=== PATIENT | female | born 1950 | race African-American/Black ===

== ENCOUNTER 2019-03-28 11:48 | Inpatient (IN) | payer MEDICARE, OTHER ==
[~2019-03-28] VITALS: Ht 167.6 cm; Wt 72.6 kg
[2019-03-28 11:50] VITALS: BP_SYST 164; BP_SYST 180; BP_DIAS 65; BP_DIAS 74
--- NOTE | 2019-03-28 11:50 | NUR ---
ED Nurse Note: brought in by RA Spence from [facility] due to near syncopal episode. a/ox3. no trauma. pt denies head injury. VSS. skin dry and loose. no fever.
[2019-03-28] MEDS ORDERED: ATORVASTATIN CA20 MG ORAL (12:11)
[2019-03-28] MEDS ORDERED: ACIDOPHILUS LACT1 GM MC (12:11)
[2019-03-28] MEDS ORDERED: LAMICTAL25 MG ORAL (12:11)
[2019-03-28] MEDS ORDERED: DONEPEZIL HCL5 M2 ORAL (12:11)
[2019-03-28] MEDS ORDERED: DULCOLAX10 MG RC (12:11)
[2019-03-28] MEDS ORDERED: RISPERDAL1 MG PO (12:11)
[2019-03-28] MEDS ORDERED: CLOPIDOGREL75 MG ORAL (12:11)
[2019-03-28] MEDS ORDERED: COLACE100 MG ORAL (12:11)
[2019-03-28] MEDS ORDERED: LEXAPRO20 MG ORAL (12:11)
[2019-03-28] MEDS ORDERED: FUROSEMIDE20 M1 ORAL (12:11)
[2019-03-28] MEDS ORDERED: MIRTAZAPINE15 MG ORAL (12:11)
[2019-03-28] MEDS ORDERED: MILK OF MA400 MG/51 ORAL (12:11)
[2019-03-28] MEDS ORDERED: LATANOPROST 0.7.5 ML BOTH EYES (12:11)
[2019-03-28] MEDS ORDERED: ZINC SULFATE220 M1 ORAL (12:11)
[2019-03-28] MEDS ORDERED: ACETAMINOPHEN500 MG ORAL (12:11)
[2019-03-28] MEDS ORDERED: ASPIRIN81 MG ORAL (12:11)
[2019-03-28] MEDS ORDERED: METOPROLOL SUCC25 MG ORAL (12:11)
[2019-03-28] MEDS ORDERED: LORATADINE10 M1 PO (12:11)
[2019-03-28] MEDS ORDERED: VITAMIN D400 INTLU ORAL (12:11)
--- NOTE | 2019-03-28 12:23 | NUR ---
ED Nurse Note: all labs, cultures, and urine sent down to the lab.
[2019-03-28 12:41] LABS: BASOPHILS % (AUTO) 0.4 % (0.0-2.0); EOSINOPHILS % (AUTO) 0.9 % (0.0-3.0); HEMATOCRIT 29.5 % (37.0-47.0); HEMOGLOBIN 9.4 G/DL (12.0-16.0); LYMPHOCYTES % (AUTO) 23.6 % (20.0-45.0); MEAN CORPUSCULAR VOLUME 104 FL (80-99); MONOCYTES % (AUTO) 8.5 % (1.0-10.0); NEUTROPHILS % (AUTO) 66.5 % (45.0-75.0); PLATELET COUNT 178 K/UL (150-450); RED BLOOD COUNT 2.84 M/UL (4.20-5.40); WHITE BLOOD COUNT 7.2 K/UL (4.8-10.8)
[2019-03-28 12:42] LABS: APPEARANCE,URINE CLEAR; BILIRUBIN, URINE NEGATIVE (NEGATIVE); GLUCOSE, URINE (UA) NEGATIVE (NEGATIVE); KETONES,URINE NEGATIVE (NEGATIVE); LEUKOCYTE ESTERASE ,URINE 3+ (NEGATIVE); NITRITE,URINE POSITIVE (NEGATIVE); PH,URINE 6 (4.5-8.0); PROTEIN,URINE NEGATIVE (NEGATIVE); UROBILINOGEN,URINE NORMAL MG/DL (0.0-1.0)
[2019-03-28 12:52] LABS: COLOR,URINE YELLOW
[2019-03-28] MEDS ORDERED: cefTRIAXone 1 GM in NS 55 ML IVPB ONE (13:00)
--- NOTE | 2019-03-28 13:00 | Emergency Room Report ---
History of Present Illness General Chief Complaint: Generalized Weakness Source: Patient Present Illness HPI 68-year-old male presents to ED for evaluation. Brought in by EMS from [facility] facility for near syncopal episode. Upon arrival patient feels weak. EMS states that blood pressure was low. Systolic in the 70s. Upon arrival patient's BP improved. EMS was unable to establish IV access. Patient states she feels weak. Patient denies fevers or chills. Denies chest pain or shortness of breath. Denies any dizziness. No other aggravating relieving factors. Denies any other associated symptoms Allergies: Coded Allergies: No Known Allergies (Unverified , 03/28/19) Patient History Past Medical History: DM, HTN, CHF, AFib, dementia, psych hx Past Surgical History: pacemaker Pertinent Family History: none Social History: Denies: smoking, alcohol use, drug use Last Menstrual Period: N/A Now: No Immunizations: UTD Reviewed Nursing Documentation: PMH: Agreed; PSxH: Agreed Nursing Documentation-PMH Hx Cardiac Problems: Yes - AFIB, HEART FAILURE, HYPERLIPIDEMIA Hx Hypertension: Yes Hx Pacemaker: Yes Hx Diabetes: Yes - AND GLAUCOMA History Of Psychiatric Problem: Yes - DEMENTIA, SCHIZOPHRENIA, MAJOR DEPRESSIVE DISORDER, ALZHEIMERS Review of Systems All Other Systems: negative except mentioned in HPI Physical Exam Vital Signs Date Time Temp Pulse Resp B/P (MAP) Pulse Ox O2 Delivery O2 Flow Rate FiO2 03/28/19 11:39 97.9 83 19 145/70 (95) 100 Room Air Sp02 EP Interpretation: reviewed, normal General Appearance: no apparent distress, alert, GCS 15, non-toxic Head: normocephalic, atraumatic Eyes: bilateral eye normal inspection, bilateral eye PERRL ENT: hearing grossly normal, normal pharynx, no angioedema, normal voice Neck: full range of motion, supple/symm/no masses Respiratory: chest non-tender, lungs clear, normal breath sounds, speaking full sentences Cardiovascular #1: regular rate, rhythm, no edema Cardiovascular #2: 2+ carotid (R), 2+ carotid (L), 2+ radial (R), 2+ radial (L) , 2+ dorsalis pedis (R), 2+ dorsalis pedis (L) Gastrointestinal: normal bowel sounds, non tender, soft, non-distended, no guarding, no rebound Rectal: deferred Genitourinary: normal inspection, no CVA tenderness Musculoskeletal: back normal, gait/station normal, normal range of motion, non- tender Neurologic: alert, oriented x3, responsive, motor strength/tone normal, sensory intact, speech normal Psychiatric: judgement/insight normal, memory normal, mood/affect normal, no suicidal/homicidal ideation Reflexes: 3+ bicep (R), 3+ bicep (L), 3+ tricep (R), 3+ tricep (L), 3+ knee (R) , 3+ knee (L) Skin: normal color, no rash, warm/dry, well hydrated Lymphatic: no adenopathy Medical Decision Making Diagnostic Impression: Primary Impression: Episode of generalized weakness Additional Impressions: UTI (urinary tract infection) Qualified Codes: N39.0 - Urinary tract infection, site not specified Syncope Qualified Codes: R55 - Syncope and collapse ER Course Hospital Course 63 yo F presents to ED s/p syncopal episode. weakness. Differential diagnoses include: WI/unstable angina, arrythmia, dehydration Clinical course Patient placed on stretcher. on conveyor monitor. After initial history and physical I ordered labs, EKG, chest x-ray, IVFs Patient is difficult IV access. I placed peripheral EJ line labs reviewed- noted leukocytosis, hemoglobin/hematocrit ok, electrolytes okay, troponins negative, UA + bacteria EKG- NSR, no acute ischemic changes interpreted by me Chest x-ray- pacemaker noted. Patient initially hypotensive by EMS but BP normal in ED. She maintains normal BP in ED antibiotics given. IVFS given. Case discussed with Dr. Boston and he agreed to accept the patient to his service for further care and support I. I feel this is a highly complex case requiring extensive working including EKG/Rhythm strip, Xray/CT/US, Blood/urine lab work, repeat exams while in ED, and administration of strong opiates/narcotics for pain control, admission to hospital or close patient follow up. Diagnosis - syncope, UTI, episode of generalized weakness admitted to telemetry in serious condition Labs Test 03/28/19 12:10 03/28/19 12:20 White Blood Count 7.2 K/UL (4.8-10.8) Red Blood Count 2.84 M/UL (4.20-5.40) Hemoglobin 9.4 G/DL (12.0-16.0) Hematocrit 29.5 % (37.0-47.0) Mean Corpuscular Volume 104 FL (80-99) Mean Corpuscular Hemoglobin 33.2 PG (27.0-31.0) Mean Corpuscular Hemoglobin Concent 32.0 G/DL (32.0-36.0) Red Cell Distribution Width 15.0 % (11.6-14.8) Platelet Count 178 K/UL (150-450) Mean Platelet Volume 6.7 FL (6.5-10.1) Neutrophils (%) (Auto) 66.5 % (45.0-75.0) Lymphocytes (%) (Auto) 23.6 % (20.0-45.0) Monocytes (%) (Auto) 8.5 % (1.0-10.0) Eosinophils (%) (Auto) 0.9 % (0.0-3.0) Basophils (%) (Auto) 0.4 % (0.0-2.0) Urine Color Yellow Urine Appearance Clear Urine pH 6 (4.5-8.0) Urine Specific V[place] 1.010 (1.005-1.035) Urine Protein Negative (NEGATIVE) Urine Glucose (UA) Negative (NEGATIVE) Urine Ketones Negative (NEGATIVE) Urine Blood Negative (NEGATIVE) Urine Nitrite Positive (NEGATIVE) Urine Bilirubin Negative (NEGATIVE) Urine Urobilinogen Normal MG/DL (0.0-1.0) Urine Leukocyte Esterase 3+ (NEGATIVE) Urine RBC 0-2 /HPF (0 - 2) Urine WBC 20-30 /HPF (0 - 2) Urine Squamous Epithelial Cells Few /LPF (NONE/OCC) Urine Bacteria Moderate /HPF (NONE) EKG Diagnostic Results Rate: normal Rhythm: NSR ST Segments: no acute changes ASA given to the pt in ED: No Rhythm Strip Diag. Results EP Interpretation: yes Rhythm: NSR, no PVC's, no ectopy Chest X-Ray Diagnostic Results Chest X-Ray Diagnostic Results : Chest X-Ray Ordered: Yes # of Views/Limited/Complete: 1 View Indication: Other EP Interpretation: Yes Interpretation: no consolidation, no effusion, no pneumothorax, no acute cardiopulmonary disease, other - pacemaker Impression: No acute disease Electronically Signed by: Electronically signed by Galdino Groves MD Last Vital Signs Date Time Temp Pulse Resp B/P (MAP) Pulse Ox O2 Delivery O2 Flow Rate FiO2 03/28/19 11:50 83 19 Room Air 03/28/19 11:50 97.9 164/65 100 Status: improved Disposition: ADMITTED INPATIENT Condition: Serious Galdino Groves MD Mar 28, 2019 13:00
[2019-03-28 13:25] LABS: ALANINE AMINOTRANSFERASE 39 U/L (12-78); ALBUMIN 3.1 G/DL (3.4-5.0); ALBUMIN/GLOBULIN RATIO 0.9 (1.0-2.7); ALKALINE PHOSPHATASE 79 U/L (46-116); ANION GAP 9 mmol/L (5-15); ASPARTATE AMINO TRANSFERASE 51 U/L (15-37); BILIRUBIN,TOTAL 0.3 MG/DL (0.2-1.0); BLOOD UREA NITROGEN 11 mg/dL (7-18); CALCIUM 9.1 MG/DL (8.5-10.1); CARBON DIOXIDE 22 MMOL/L (21-32); CHLORIDE 109 MMOL/L (98-107); CKMB < 0.5 NG/ML (0.0-3.6); CREATINE KINASE 28 U/L (26-308); POTASSIUM 4.6 MMOL/L (3.5-5.1); SODIUM 140 MMOL/L (136-145)
--- NOTE | 2019-03-28 13:45 | NUR ---
ED Nurse Note: spoke with KATRINA Arevalo from 2E, receiving RN is not able to received report at this time. Will call back.
--- NOTE | 2019-03-28 13:55 | NUR ---
ED Nurse Note: telephone report given to KATRINA Bhardwaj. Pt remains stable. Will transfer the pt up.
[2019-03-28 13:57] VITALS: BP 154/62
--- NOTE | 2019-03-28 14:17 | NUR ---
TRANSFER TO FLOOR: Patient transferred to #[id number] as ordered via gurney with gaming manager . Report given to KATRINA fay. Belongings given to pt. no s/s of distress.
--- NOTE | 2019-03-28 14:20 | NUR ---
NURSE NOTES: Pt transferred safely to floor from ED. potline monitor applied, pt is SR. Patient belongings verified. Report received from KATRINA Mattson. Pt shows no signs of distress. A+Ox2, confused about when and where she is. Pt denies pain/SOB. IV site is patent, intact, and saline locked. Bed is at lowest position, brakes engaged, siderails x2, bed alarm on, and call light within reach. Pt is in stable condition at this time; will continue to monitor.
--- NOTE | 2019-03-28 14:44 | Diagnostic Imaging Report ---
EXAM: XR Chest, 1 View CLINICAL HISTORY: SYNCOPE TECHNIQUE: Frontal view of the chest. COMPARISON: No relevant prior studies available. FINDINGS: Lungs: Pulmonary hyperexpansion. No clear consolidation. Pleural space: Unremarkable. No pneumothorax. Heart: Dual-lead pacer device in a left subclavian approach. Bones/joints: Unremarkable. IMPRESSION: Pulmonary hyperexpansion. No clear consolidation. Pacer device.
--- NOTE | 2019-03-28 15:01 | NUR ---
NURSE NOTES: Left message with Dr. Darling regarding admission orders; awaiting response.
[2019-03-28 16:00] VITALS: BP 160/87
[2019-03-28] MEDS ORDERED: LORazepam 1mg tab ORAL PRN (16:00)
[2019-03-28] MEDS: LORazepam Inj 2mg/ml 1ml IV PRN ×2 (16:15→22:41)
--- NOTE | 2019-03-28 17:08 | NUR ---
NURSE NOTES: Admission orders in. Let Dr. Darling know that patient is wandering and almost falling over. He ordered ativan. Ativan did not work. He said we could use bilat soft wrist restraints. Order noted and carried out. Pt placed in restraints. Pt yelling and screaming, but she is in bed safely.
[2019-03-28] MEDS: 1/2NS w/KCl 20mEq 1000ml 1,000 ML IV SCH ×2 (17:22→20:14)
--- NOTE | 2019-03-28 19:24 | NUR ---
NURSE NOTES: Report given to KATRINA Parkinson. Plan of care endorsed; plan of care endorsed.
--- NOTE | 2019-03-28 19:30 | NUR ---
NURSE NOTES: Received pt from KATRINA Bhardwaj. Pt awake and screaming out different family names. Bed in lowest position. Restraints on. Call light within reach. Will continue to monitor.
[2019-03-28 20:01] VITALS: BP 139/70
[2019-03-28] MEDS: Heparin 5000 units/ml inj SUBQ SCH (20:17)
[2019-03-29 04:00] VITALS: BP 150/91
[2019-03-29] MEDS: LORazepam Inj 2mg/ml 1ml IV PRN ×2 (06:38→13:58)
--- NOTE | 2019-03-29 07:37 | NUR ---
HAND-OFF: Report given to KATRINA Arce. Pt stable.
[2019-03-29 08:00] VITALS: BP 156/68
--- NOTE | 2019-03-29 08:21 | NUR ---
NURSE NOTES: Received report from KATRINA Parkinson. Patient in bed resting, no active s/s cardiac, respiratory distress noticed at this time. Patient on room air, SR with HR 86, AOx1, confused, trying to get out of bed. Patient on bilateral soft wrist restraints, cap refill <3 sec, able to move fingers. IV on right EJ, 20G, asymptomatic, patent, intact. Bed in lowest position, side rails upx3, call light within reach, bed alarm on. Will continue to monitor.
[2019-03-29] MEDS: Aspirin Baby 81mg ORAL SCH (10:17)
[2019-03-29] MEDS: Heparin 5000 units/ml inj SUBQ SCH ×2 (10:18→20:16)
[2019-03-29 12:00] VITALS: BP_SYST 160; BP_SYST 186; BP_DIAS 89; BP_DIAS 94
--- NOTE | 2019-03-29 12:41 | NUR ---
NURSE NOTES: Paged Dr. Butler regarding dosage for Rocephin. Per pharmacist, only 1 g or 2g Rocephin available. Awaiting for callback. Will continue to monitor.
--- NOTE | 2019-03-29 13:20 | NUR ---
NURSE NOTES: Per Dr. Butler, change Rocephin 500mg to 1g. Order noted, entered, carried out. Called pharmacist to clarify. Will continue to monitor.
[2019-03-29] MEDS: cefTRIAXone 1gm/D5W 55ml IVPB SCH ×2 (14:07)
--- NOTE | 2019-03-29 14:54 | NUR ---
NURSE NOTES: Paged Dr. Butler regarding high BP 180s, awaiting for callback. Will continue to monitor.
[2019-03-29 16:00] VITALS: BP 160/94
--- NOTE | 2019-03-29 16:45 | History and Physical Report ---
DATE OF ADMISSION: 03/28/2019 CHIEF COMPLAINT: Altered level of consciousness. HISTORY OF PRESENT ILLNESS: This is a 63-year-old female from [facility]. The patient's primary physician, Dr. Didi Gonzales, asked me to attend this patient while she is at [facility]. The patient is confused and unable to give any further information. PAST MEDICAL HISTORY: 1. Type 2 diabetes mellitus. 2. Hypertensive cardiovascular disease. 3. Congestive heart failure. 4. Atrial fibrillation. 5. Dementia. 6. Schizophrenia. 7. Glaucoma. MEDICATIONS: Current medications multiple and include Tylenol p.r.n., baby aspirin, atorvastatin, bisacodyl, Plavix, indication for which is not clear, sodium docusate, Aricept, Lexapro, Lasix, lactobacillus, Lamictal, latanoprost eye drops, loratadine, milk of magnesia, Toprol XL, Remeron, Risperdal, vitamin D3, and zinc sulfate. ALLERGIES: No known drug allergies. FAMILY HISTORY: Unable to obtain due to mental status. SOCIAL HISTORY: Unable to obtain due to mental status. REVIEW OF SYSTEMS: Unable to obtain due to mental status. PHYSICAL EXAMINATION: GENERAL: This is an elderly female, who is in no acute distress. VITAL SIGNS: Blood pressure 156/68, pulse 89, heart rate 91 and regular, respirations 18, and temperature 96.8. HEENT: The head is normocephalic and atraumatic. Pupils are equal, round, and reactive to light and accommodation consensually. NECK: Supple. Trachea midline. There is no lymphadenopathy or thyromegaly. LUNGS: Clear to auscultation and percussion. HEART: Regular rate and rhythm without rubs, murmurs, or gallops. ABDOMEN: Soft and nontender. Bowel sounds were active. EXTREMITIES: No clubbing, cyanosis, or edema. NEUROLOGIC: She is confused. There were no gross focal findings. She is very agitated. LABORATORY AND ANCILLARY DATA: Hematocrit 29.5, otherwise CBC within normal limits. Chemistry, glucose 112. Albumin 3.1. Otherwise, CMP within normal limits. Urinalysis, positive nitrites, 20 to 30 rbc's, moderate amount of bacteria. Chest x-ray, pulmonary expansion. EKG normal sinus rhythm. ASSESSMENT: 1. Altered level of consciousness, most likely related to her urinary tract infection. 2. Type 2 diabetes mellitus. 3. Hypertensive cardiovascular disease. 4. Congestive heart failure. 5. Atrial fibrillation. 6. Dementia. 7. Schizophrenia. 8. Glaucoma. PLAN: 1. Continue telemetry. 2. IV antibiotics. 3. the patient's polypharmacy. 4. Psychiatry consult. 5. Cardiology consult. Rg Darling M.D. DR: GISSEL JOB#: [id number] CC:
[2019-03-29] MEDS ORDERED: LORATADINE10 M2 PO (18:57)
[2019-03-29] MEDS ORDERED: VENTOLIN HFA18 GM INH (18:57)
[2019-03-29] MEDS ORDERED: MIRTAZAPINE7.5 MG ORAL (18:57)
[2019-03-29] MEDS ORDERED: ASPIR 8181 MG ORAL (18:57)
[2019-03-29] MEDS ORDERED: ATORVASTATIN CA10 MG ORAL (18:57)
[2019-03-29] MEDS ORDERED: FLEET ENEMA133 ML RECTAL (18:57)
[2019-03-29] MEDS ORDERED: DONEPEZIL HCL5 MG ORAL (18:57)
[2019-03-29] MEDS ORDERED: ATIVAN2 MG ORAL (18:57)
[2019-03-29] MEDS ORDERED: ACETAMINOPHEN325 M1 ORAL (18:57)
[2019-03-29] MEDS ORDERED: POTASSIUM CHLO20 ME1 ORAL (18:57)
--- NOTE | 2019-03-29 19:11 | NUR ---
Received report from KARTINA DOMINIQUE. Patient resting in bed, no signs of cardiac or respiratory distress. Patient is only Alert and oriented x1 to self with confusion, Sinus rhythm on monitor, observed patient on Room air, with bilateral soft wrist restraints ordered, capillary refill checked, <3 seconds. Patient on bilateral soft wrist restraints, cap refill <3 sec, no impairment of circulation. IV intact on R EJ 20g, patent. Bed in lowest position, call light within reach, bed in lowest position, bed alarm on for safety.
--- NOTE | 2019-03-29 19:53 | NUR ---
HAND-OFF: Report given to KATRINA Mason.
--- NOTE | 2019-03-29 20:21 | NUR ---
Dr Darlnig was paged regarding the patient's elevated Blood pressure. ordered Scheduled medication Labetalol BID to start this evening see orders for details
[2019-03-29 20:23] VITALS: BP 212/109
[2019-03-29 22:35] VITALS: BP 132/73
--- NOTE | 2019-03-29 22:36 | NUR ---
Blood pressure rechecked at 132/73 HR 96. Medication effective.
[2019-03-30] VITALS (7 sets, daily range): BP systolic 133–170; BP diastolic 57–71
[2019-03-30] MEDS: 1/2NS w/KCl 20mEq 1000ml 1,000 ML IV SCH ×2 (01:10→15:56)
--- NOTE | 2019-03-30 07:35 | NUR ---
Report given to Claude HERNDON. Patient is awake and alert, in bilateral soft wrist restraints. Vital signs stable at this time. Blood pressure more stable.
--- NOTE | 2019-03-30 07:36 | NUR ---
NURSE NOTES: Received report from KATRINA Mason. Patient in bed resting, no active s/s cardiac, respiratory distress noticed at this time. Denies pain at this time. Patient on room air, SR with HR 77, on bilateral soft restraint, cap refill <3 sec, able to move, AOx1, confuse, trying to get out of bed, open eyes spontaneously. IV on right EJ 20G, asymptomatic, patent, intact. Bed in lowest position, side rails upx3, call light within reach, bed alarm on. Will continue to monitor.
[2019-03-30] MEDS: cefTRIAXone 1gm/D5W 55ml IVPB SCH ×2 (09:46)
[2019-03-30] MEDS: Aspirin Baby 81mg ORAL SCH (09:46)
[2019-03-30] MEDS: Heparin 5000 units/ml inj SUBQ SCH ×2 (09:48→21:11)
--- NOTE | 2019-03-30 10:19 | General Progress Note ---
Assessment/Plan Assessment/Plan: UTI - IV Abx E. Coli, R/O ESBL Subjective Allergies: Coded Allergies: No Known Allergies (Unverified , 03/28/19) Subjective Confused, agitated Objective Last 24 Hour Vital Signs Date Time Temp Pulse Resp B/P (MAP) Pulse Ox O2 Delivery O2 Flow Rate FiO2 03/30/19 09:47 88 154/64 03/30/19 08:00 97.9 88 18 154/64 (94) 100 03/30/19 04:24 96.6 77 20 141/57 (85) 100 03/30/19 04:24 77 03/30/19 00:57 98.4 96 20 133/57 (82) 100 03/29/19 22:35 96 20 132/73 (92) 100 03/29/19 21:43 Room Air 03/29/19 20:23 98.4 100 20 212/109 (143) 100 03/29/19 20:17 100 212/109 03/29/19 20:00 106 03/29/19 16:00 100 03/29/19 16:00 98.0 99 20 160/94 (116) 100 03/29/19 12:00 98.0 103 20 186/89 (121) 100 03/29/19 12:00 88 Intake and Output 03/29/19 03/30/19 19:00 07:00 Intake Total 120 ml Balance 120 ml Intake Oral 120 ml # Voids 3 Laboratory Tests 03/30/19 06:40: Magnesium Level 1.3L Height (Feet): 5 Height (Inches): 6.00 Weight (Pounds): 160 Objective CV RR Lungs CTa Abd SNT. BS + E No CCE Neuro Confused gR Darling MD Mar 30, 2019 10:19
--- NOTE | 2019-03-30 10:33 | NUR ---
NURSE NOTES: Received blood culture result: one pair shown one bottle of gram cocci in cluster. Dr. Darling was nearby. Dr. Darling is aware. States to wait for 2nd pair and then contact Dr. Darling.
[2019-03-30] MEDS: LORazepam Inj 2mg/ml 1ml IV PRN (13:52)
--- NOTE | 2019-03-30 16:15 | Coder Physician Query ---
Clarification is required for compliance, coding accuracy, and to reflect severity of illness for this patient Dear Dr. Rg Butler Date: 03/30/2019 Piccolo Mechanic/CDS Name: Abril Heredia Clinical Documentation States: 63-year-old female... patient is confused and unable to give any further information...Altered level of consciousness, most likely related to her urinary tract infection...Dementia...Schizophrenia Labs: Na 140, K 4.6, Cl 109 (L), Glucose 112 (H), Mg 1.3 (L) Treatment: IV ceftriaxone Please indicate the nature and chronicity of the condition below: [] Encephalopathy due to UTI [x] Metabolic Encephalopathy [] Dementia with delirium [] Dementia with behavioral disturbance [] Other: [] Not Applicable Present on Admission: [] Yes [] No [] Clinically Undetermined Physician signature Date Please also document in your Progress Notes and/or Discharge Summary and indicate if the condition was present on admission. MTDD
--- NOTE | 2019-03-30 16:30 | NUR ---
NURSE NOTES: Dr. Lackey made aware patient confuse, screaming. Per Dr. Lackey, will order something. Order noted, entered, carried out. Will continue to monitor.
--- NOTE | 2019-03-30 17:05 | NUR ---
CASE MANAGEMENT:REVIEW 63 YR OLD FEMALE BIBA FROM [facility] CC; NEAR SYNCOPAL EPISODE. SBP 70 AT SCENE SI: SYNCOPE. UTI 97.8 83 19 145/70 100% ON RA H/H-9.4/29.5 IS:1L NS BOLUS IV ROCEPHIN BLOOD CX CHEST XRAY : TO TELEMETRY UNIT DCP: RETURN TO [facility]
--- NOTE | 2019-03-30 17:32 | Diagnostic Imaging Report ---
APPROVED REPORT CPT Code: 59377 Vascular Symptoms Syncope Comments: Hx of a line in the right neck Doppler Spectral Velocity Analysis RightLeft Technically limited study (right side) RIGHT SIDE: CCA - Imaging reveals irregular plaque in the common carotid artery. The Doppler spectral flow analysis indicates the degree of stenosis is mild (30-40%) in the common carotid artery. ICA/ECA- The internal carotid artery and the external carotid artery were not imaged, due to a line. VERTEBRAL/SUBCLAVIAN- The vertebral artery and subclavian artery are patent, without evidence of stenosis or steal. arteries. The Doppler spectral flow analysis indicates the degree of stenosis is mild (30-40%) in the common carotid artery, moderate to severe (70-80%) in the internal carotid artery, and mild (30-50%) in the external carotid artery. VERTEBRAL/SUBCLAVIAN- The vertebral artery and subclavian artery are patent, without evidence of stenosis or steal.
--- NOTE | 2019-03-30 20:06 | NUR ---
HAND-OFF: Report given to KATRINA Parkinson.
--- NOTE | 2019-03-30 20:07 | NUR ---
NURSE NOTES: Received pt from KATRINA Arce. Pt awake, alert, and yelling out multiple names in the hallway. Bed in lowest position. Call light within reach. Will continue to monitor.
--- NOTE | 2019-03-30 20:41 | NUR ---
Contacted Dr Lackey per patient very anxious and screaming in her room .Pt states she is stressed out and she needs something to calm her down. Dr Lackey ordered 1mg Ativan IV q4 prn for pt anxiety. see order for details.
[2019-03-30] MEDS ORDERED: LORazepam Inj 2mg/ml 1ml IV PRN (20:45)
[2019-03-31] VITALS: BP 143/56
[2019-03-31 03:56] VITALS: BP 134/65
--- NOTE | 2019-03-31 06:00 | Consultation ---
DATE OF CONSULTATION: 03/30/2019 HISTORY OF PRESENT ILLNESS: The patient is a 63-year-old female presents with multiple medical problems including type 2 diabetes, schizophrenia, hypertension, cardiovascular disease, congestive heart failure, AFib, glaucoma, who has been admitted to the hospital for medical stabilization. The patient came from [facility]. The patient is agitated, confused, and unable to provide any history. PAST PSYCHIATRIC HISTORY: Schizophrenia. PAST MEDICAL HISTORY: As above. ALLERGIES: No known drug allergies. SUBSTANCE ABUSE HISTORY: No known history of illicit drug use or alcohol. MENTAL STATUS EXAMINATION: The patient is alert, confused, and disoriented. Mood is agitated. Affect is constricted. Thought process is concrete. Thought content, no suicidal or homicidal ideations. ASSESSMENT: AXIS I: Schizophrenia. AXIS II: Deferred. AXIS III: As above. AXIS IV: Low. AXIS V: 20. PLAN: 1. The patient will be started on Lexapro. 2. We will start the patient on antipsychotics. 3. Ativan p.r.n. 4. We will continue to follow and readjust the medications. Jourdan Lackey M.D. DR: MCKENZIE JOB#: [id number] CC:
[2019-03-31] MEDS: 1/2NS w/KCl 20mEq 1000ml 1,000 ML IV SCH (06:32)
--- NOTE | 2019-03-31 07:38 | NUR ---
HAND-OFF: Report given to KATRINA Johnson. Pt asleep.
--- NOTE | 2019-03-31 07:39 | NUR ---
NURSE NOTES: Received report from KATRINA Parkinson. Patient is resting in bed, sleeping. No signs and symptoms of acute distress at this time. Kept clean, dry, and comfortable in bed. Safety precaution in place; side rails X2 up, call light within reach, bed in lowest position, brakes and alarm on at all times. Restraint on. IV running at RX dose. Will continue plan of care.
[2019-03-31 08:00] VITALS: BP 158/67
[2019-03-31] MEDS: cefTRIAXone 1gm/D5W 55ml IVPB SCH ×2 (08:57)
[2019-03-31] MEDS: Aspirin Baby 81mg ORAL SCH (08:58)
[2019-03-31] MEDS: Heparin 5000 units/ml inj SUBQ SCH (09:00)
--- NOTE | 2019-03-31 09:19 | General Progress Note ---
Assessment/Plan Assessment/Plan: UTI - IV Abx E. Coli, R/O ESBL. On IV Abx. Improving. DC to SNF. Subjective Allergies: Coded Allergies: No Known Allergies (Unverified , 03/28/19) Subjective Less confused and agitated Objective Last 24 Hour Vital Signs Date Time Temp Pulse Resp B/P (MAP) Pulse Ox O2 Delivery O2 Flow Rate FiO2 03/31/19 08:58 82 158/67 03/31/19 08:00 98.6 82 20 158/67 (97) 98 03/31/19 04:00 76 03/31/19 03:56 97.9 80 18 134/65 (88) 98 03/31/19 00:00 97.5 76 18 143/56 (85) 100 03/31/19 00:00 75 03/30/19 21:09 84 138/62 03/30/19 21:08 84 138/62 (87) 99 03/30/19 21:00 Room Air 03/30/19 20:00 86 03/30/19 20:00 98.7 86 16 152/65 (94) 100 03/30/19 16:00 97.7 72 16 170/71 (104) 100 03/30/19 16:00 79 03/30/19 12:00 82 03/30/19 12:00 97.6 76 18 138/66 (90) 99 03/30/19 09:47 88 154/64 Intake and Output 03/30/19 03/31/19 19:00 07:00 # Voids 5 2 # Bowel Movements 1 Height (Feet): 5 Height (Inches): 6.00 Weight (Pounds): 160 Objective CV RR Lungs CTa Abd SNT. BS + E No CCE Neuro Confused Rg Darling MD Mar 31, 2019 09:19
[2019-03-31] MEDS ORDERED: NORMODYNE100 MG ORAL (09:23)
[2019-03-31] MEDS ORDERED: LEXAPRO10 MG ORAL (09:23)
[2019-03-31] MEDS ORDERED: SEROQUEL25 MG ORAL (09:23)
--- NOTE | 2019-03-31 09:35 | NUR ---
DISCHARGE PLANNING DISCHARGE ORDER NOTED FAXED CLINICALS TO [facility] AWAIT ROOM ASSIGNMENT
--- NOTE | 2019-03-31 11:20 | NUR ---
NURSE NOTES: Paged Dr. Darling to follow up regarding abnormal Magnesium level from 03/30/19.
--- NOTE | 2019-03-31 11:28 | NUR ---
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
[2019-03-31 12:00] VITALS: BP 106/56
--- NOTE | 2019-03-31 12:00 | NUR ---
NURSE NOTES: Patient discharged to SNF per Dr. Darling's order. Al discharged instruction explained to patient, however patient is not fully oriented. Called to [facility] and report given to KATRINA Ugarte. Patient is in stable condition. [facility] will be here at 1300.
--- NOTE | 2019-03-31 13:17 | NUR ---
NURSE NOTES: Heart monitor removed and returned to lunchroom monitor. IV removed. ID band removed and placed in shredder. Patient went to the same SNF she came from, in stable condition and with [facility].
[2019-03-31] MEDS ORDERED: NS 275ml ONE (13:19)
[2019-03-31] MEDS ORDERED: Tubing IV Secondary IV ONE (13:19)
--- NOTE | 2019-03-31 18:45 | Progress Note ---
DATE: 03/31/2019 SUBJECTIVE: The patient presents with disorganized speech and behavior, agitated, yelling. The patient is not redirectable. Received a shot last night. MENTAL STATUS EXAMINATION: Alert and oriented times self. Mood is agitated. Affect is flat. Thought process, there is a paucity of thought content. Thought content, no suicidal or homicidal ideations, delusional. Insight and judgment non-existent. The patient is not an imminent danger to self or others. ASSESSMENT: Dementia with behavior disturbance. PLAN: We will continue the current medication. Provide the patient with reality orientation and supportive therapy. Jourdan Lackey M.D. DR: ANALI JOB#: [id number] CC:
--- NOTE | 2019-04-01 13:34 | Cardiology Report ---
APPROVED REPORT EXAM: Two-dimensional and M-mode echocardiogram with Doppler and color Doppler. INDICATION Syncope M-Mode DIMENSIONS IVSd1.0 (0.7-1.1cm)Left Atrium (MM)3.5 (1.6-4.0cm) LVDd4.2 (3.5-5.6cm)Aortic Root2.5 (2.0-3.7cm) PWd1.0 (0.7-1.1cm)Aortic Cusp Exc.1.9 (1.5-2.0cm) LVDs1.5 (2.5-4.0cm) PWs2.2 cm Normal left ventricular chamber size, systolic function and wall motion. Left ventricular ejection fraction estimated to be 65%. No evidence of left ventricular hypertrophy. No evidence of pericardial effusion. All other cardiac chamber sizes are within normal limits. Focal aortic valve sclerosis with adequate cusp excursion. Thickened mitral valve leaflets with normal excursion. Mild mitral annulus and aortic root calcification. Normal pulmonic valve structure. Normal tricuspid valve structure. IVC is normal in size with physiological collapse. A color flow and spectral Doppler study was performed and revealed: Moderate aortic insufficiency. Mild mitral regurgitation. Mitral diastolic velocities suggest mild left ventricular diastolic dysfunction (Grade I). Mild tricuspid regurgitation. Tricuspid systolic velocities suggests peak right ventricular systolic pressure of 51 mmHg, consistent with moderate pulmonary hypertension. Trace pulmonic regurgitation present.
--- NOTE | 2019-04-03 07:46 | Discharge Summary ---
Discharge Summary Discharge Summary _ DATE OF ADMISSION: 03/28/2019 DATE OF DISCHARGE: 03/31/2019 DISCHARGED BY: Dr. Darling REASON FOR ADMISSION: 69 years old female, resident of care home facility, with past medical history of diabetes mellitus, hypertension, congestive heart failure, atrial fibrillation, dementia, psychiatric history, brought for evaluation due to near syncopal episode. 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 Upon arrival blood pressure improved. Patient reported feeling weak. No fever , no chills. No chest pain or shortness of breath. No dizziness. Upon evaluation blood pressure was already 145/70. Laboratory work-up revealed no leukocytosis , hemoglobin 9.4 , hematocrit 29.5. UTI was grossly positive for UTI. EKG revealed normal sinus rhythm, no acute ischemic changes. Troponin negative. Pro BNP 461. Stable renal parameters and electrolytes. Lactic acid 1.9. Chest x-ray demonstrated pulmonary hyperexpansion , no consolidation. Pacer device noted. Patient presented with altered level of consciousness , most likely related to her urinary tract infection. In ER patient received IV fluids, urine was cultured , and patient started on empiric antibiotic. Patient subsequently admitted to telemetry floor for further management. CONSULTANTS: psychiatrist [facility] COURSE: Patient admitted to telemetry floor. Echocardiogram demonstrated preserved ejection fraction of 65%. No evidence of left ventricular hypertrophy. No evidence of wall motion abnormality. No evidence of pericardial effusion. Right ventricular systolic pressure of 51 consistent with moderate pulmonary hypertension. Patient was on the IV hydration and empiric antibiotic. Urine culture revealed E. coli. Patient was continued to be observed on telemetry floor. Patient remains in sinus rhythm, no evidence of arrhythmia. Blood pressure was managed with beta-jeffrey, and remains stable. Heart rate was stable . Antiplatelet therapy with Plavix continued. DVT prophylaxis provided. . Low magnesium 1.3 noted. Magnesium was replaced. Psychiatrist seen and evaluated patient , and diagnosed patient with dementia with behavioral disturbance. Reality orientation supportive therapy provided. Psychiatric medication regimen was optimized as per psychiatrist. Supportive care provided . Patient remains afebrile, hemodynamically stable. Patient was ready for discharge to the care home facility for continuation of care. FINAL DIAGNOSES: E. coli UTI Metabolic encephalopathy Type 2 diabetes mellitus Hypertensive cardiovascular disease Congestive heart failure Atrial fibrillation Dementia with behavioral disturbances Schizophrenia DISCHARGE MEDICATIONS: See Medication Reconciliation list. DISCHARGE INSTRUCTIONS: Patient was discharged to the care home facility. Follow up with medical doctor at the facility. I have been assigned to dictate discharge summary for this account. I was not involved in the patient's management. Osiris Jeffries NP Apr 03, 2019 07:46
--- NOTE | 2019-04-07 14:22 | Cardiology Report ---
APPROVED REPORT EKG Measurement Heart [id number] Normal sinus rhythm Normal ECG
== END 2019-03-31 13:20 | DRG 689 ==
LOC: EDBD 11:48 → EMR 13:09 → EDBEDREQ 13:33 → EDBD 13:42 → 2E 13:42
DX: N39.0 Urinary tract infection, site not specified (principal); G93.41 Metabolic encephalopathy; F03.91 Unspecified dementia, unspecified severity, with behavioral disturbance; Z78.1 Physical restraint status; F20.9 Schizophrenia, unspecified; E11.9 Type 2 diabetes mellitus without complications; H40.9 Unspecified glaucoma; I11.0 Hypertensive heart disease with heart failure; I50.9 Heart failure, unspecified; B96.20 Unspecified Escherichia coli [E. coli] as the cause of diseases classified elsewhere; I48.91 Unspecified atrial fibrillation; Z79.02 Long term (current) use of antithrombotics/antiplatelets; I27.20 Pulmonary hypertension, unspecified
CPT/HCPCS: 36415; 71045; 80053; 81003; 82550; 82553; 83605; 83735; 83880; 84484; 85025; 87040; 87081; 87086; 87181; 93005; 93306; 93880; 96361; 96365; 99285

== ENCOUNTER 2019-04-28 17:20 | Inpatient (IN) | payer MEDICARE, OTHER ==
[~2019-04-28] VITALS: Ht 167.6 cm; Wt 66.2 kg
[~2019-04-28 17:20] MED LIST: ACETAMINOPHEN325 M1 ORAL; ACETAMINOPHEN500 MG ORAL; ACIDOPHILUS LACT1 GM MC; ASPIR 8181 MG ORAL; ASPIRIN81 MG ORAL; ATIVAN2 MG ORAL; ATORVASTATIN CA10 MG ORAL; ATORVASTATIN CA20 MG ORAL; CLOPIDOGREL75 MG ORAL; COLACE100 MG ORAL; DONEPEZIL HCL5 M2 ORAL; DONEPEZIL HCL5 MG ORAL; DULCOLAX10 MG RC; FLEET ENEMA133 ML RECTAL; FUROSEMIDE20 M1 ORAL; LAMICTAL25 MG ORAL; LATANOPROST 0.7.5 ML BOTH EYES; LEXAPRO10 MG ORAL; LEXAPRO20 MG ORAL; LORATADINE10 M1 PO; LORATADINE10 M2 PO; METOPROLOL SUCC25 MG ORAL; MILK OF MA400 MG/51 ORAL; MIRTAZAPINE15 MG ORAL; MIRTAZAPINE7.5 MG ORAL; NORMODYNE100 MG ORAL; POTASSIUM CHLO20 ME1 ORAL; RISPERDAL1 MG PO; SEROQUEL25 MG ORAL; VENTOLIN HFA18 GM INH; VITAMIN D400 INTLU ORAL; ZINC SULFATE220 M1 ORAL
[2019-04-28] MEDS ORDERED: levETIRAcetam 500 MG in D5W 110 ML IV ONE (17:30)
[2019-04-28] MEDS ORDERED: LORazepam Inj 2mg/ml 1ml IV ONE (17:30)
--- NOTE | 2019-04-28 17:36 | Emergency Room Report ---
History of Present Illness General Chief Complaint: Seizure Source: Patient, Medical Record, EMS Present Illness HPI The patient presents after having 2 witnessed generalized tonic-clonic seizures. There were 15 minutes apart. EMS was summoned. Accu-Chek was normal. The patient was able to respond to them. The patient has had a prior stroke and has weakness of her face and some expressive difficulties talking. She has a mild headache at this time. She was incontinent. She denies vomiting or chest pain. There are no palpitations. The patient does not take any anticonvulsants at this time. The patient has behavioral problems. She is on antipsychotic medications. Is listed that she has a history of depression. She denies suicidal or homicidal ideation. The patient has rheumatoid arthritis. She complains of some mild joint pain in her hands. Pacemaker - A fib in past. On Plavix and aspirin. She was admitted in March with these discharge diagnoses: E. coli UTI Metabolic encephalopathy Type 2 diabetes mellitus Hypertensive cardiovascular disease Congestive heart failure Atrial fibrillation Dementia with behavioral disturbances Schizophrenia Allergies: Coded Allergies: No Known Allergies (Unverified , 03/28/19) Patient History Past Medical History: see triage record, old chart reviewed Past Surgical History: pacemaker Social History: Reports: smoking Social History Narrative snf Reviewed Nursing Documentation: PMH: Agreed; PSxH: Agreed Nursing Documentation-PMH Past Medical History: No History, Except For Hx Cardiac Problems: Yes - AFIB, HEART FAILURE, HYPERLIPIDEMIA Hx Hypertension: Yes Hx Pacemaker: Yes Hx Diabetes: Yes Review of Systems All Other Systems: negative except mentioned in HPI Physical Exam Vital Signs Date Time Temp Pulse Resp B/P (MAP) Pulse Ox O2 Delivery O2 Flow Rate FiO2 04/28/19 17:20 98.1 57 18 140/57 (84) 100 Room Air Sp02 EP Interpretation: reviewed, normal General Appearance: no apparent distress, other - GCS 14 Head: normocephalic, atraumatic Eyes: bilateral eye PERRL ENT: moist mucus membranes, other - R facial weakness Neck: full range of motion, supple Cardiovascular #1: regular rate, rhythm Cardiovascular #2: 2+ radial (R) Gastrointestinal: non tender, soft, no mass Genitourinary: no CVA tenderness Musculoskeletal: swelling Neurologic: sensory intact, no Babinski - questionable R, facial droop, motor weakness - Mainly facial, other - slow to answer, oriented - X2 Psychiatric: no suicidal/homicidal ideation, depressed affect Skin: no rash Medical Decision Making Diagnostic Impression: Primary Impression: New onset seizure Additional Impressions: Status post CVA Schizoaffective disorder, depressive type ER Course The patient presents with new onset seizures. Differential includes new onset seizure, electrolyte abnormality, brain bleed, new stroke, arrhythmia amongst others. Evaluation will be with CT of the head, EKG and chest x-ray and labs. The patient will be treated with a small dose of Ativan and also initially Keppra was ordered however the patient psychiatrist called in and request that we start Depakote instead of Keppra because it will help treating her behavioral problems. EKG sinus rhythm. Chest x-ray pacemaker. Labs unremarkable. CT of the head no acute bleed or infarct identified. Patient tolerated IV Ativan and Depakote. No further seizure activity witnessed. Patient admitted to telemetry Dr. Darling. Laboratory Tests Test 04/28/19 17:50 04/28/19 18:15 White Blood Count 5.1 K/UL (4.8-10.8) Red Blood Count 3.49 M/UL (4.20-5.40) L Hemoglobin 11.7 G/DL (12.0-16.0) L Hematocrit 36.5 % (37.0-47.0) L Mean Corpuscular Volume 105 FL (80-99) H Mean Corpuscular Hemoglobin 33.4 PG (27.0-31.0) H Mean Corpuscular Hemoglobin Concent 31.9 G/DL (32.0-36.0) L Red Cell Distribution Width 13.0 % (11.6-14.8) Platelet Count 196 K/UL (150-450) Mean Platelet Volume 6.2 FL (6.5-10.1) L Neutrophils (%) (Auto) 54.1 % (45.0-75.0) Lymphocytes (%) (Auto) 34.2 % (20.0-45.0) Monocytes (%) (Auto) 10.0 % (1.0-10.0) Eosinophils (%) (Auto) 1.0 % (0.0-3.0) Basophils (%) (Auto) 0.7 % (0.0-2.0) Sodium Level 145 MMOL/L (136-145) Potassium Level 3.9 MMOL/L (3.5-5.1) Chloride Level 113 MMOL/L (98-107) H Carbon Dioxide Level 20 MMOL/L (21-32) L Anion Gap 12 mmol/L (5-15) Blood Urea Nitrogen 12 mg/dL (7-18) Creatinine 0.9 MG/DL (0.55-1.30) Estimate Glomerular Filtration Rate > 60 mL/min (>60) Glucose Level 124 MG/DL (74-106) H Calcium Level 8.9 MG/DL (8.5-10.1) Total Bilirubin 0.3 MG/DL (0.2-1.0) Aspartate Amino Transferase (AST) 47 U/L (15-37) H Alanine Aminotransferase (ALT) 33 U/L (12-78) Alkaline Phosphatase 68 U/L (46-116) Total Creatine Kinase 27 U/L (26-308) Troponin I 0.000 ng/mL (0.000-0.056) Total Protein 6.3 G/DL (6.4-8.2) L Albumin 2.7 G/DL (3.4-5.0) L Globulin 3.6 g/dL Albumin/Globulin Ratio 0.8 (1.0-2.7) L Urine Color Yellow Urine Appearance Slightly cloudy Urine pH 6 (4.5-8.0) Urine Specific [place]ott 1.020 (1.005-1.035) Urine Protein 2+ (NEGATIVE) H Urine Glucose (UA) Negative (NEGATIVE) Urine Ketones 1+ (NEGATIVE) H Urine Blood Negative (NEGATIVE) Urine Nitrite Negative (NEGATIVE) Urine Bilirubin 1+ (NEGATIVE) H Urine Ictotest Negative (NEGATIVE) Urine Urobilinogen 4 MG/DL (0.0-1.0) H Urine Leukocyte Esterase 2+ (NEGATIVE) H Urine RBC 0-2 /HPF (0 - 2) Urine WBC 2-4 /HPF (0 - 2) Urine Squamous Epithelial Cells Few /LPF (NONE/OCC) Urine Bacteria Few /HPF (NONE) Urine Mucus Many /LPF (NONE/OCC) H Urine Opiates Screen Negative (NEGATIVE) Urine Barbiturates Screen Negative (NEGATIVE) Phencyclidine (PCP) Screen Negative (NEGATIVE) Urine Amphetamines Screen Negative (NEGATIVE) Urine Benzodiazepines Screen Positive (NEGATIVE) H Urine Cocaine Screen Negative (NEGATIVE) Urine Marijuana (THC) Screen Negative (NEGATIVE) EKG Diagnostic Results Rate: normal Rhythm: NSR ST Segments: no acute changes Rhythm Strip Diag. Results EP Interpretation: yes Rhythm: NSR, no PVC's, no ectopy Chest X-Ray Diagnostic Results Chest X-Ray Diagnostic Results : Chest X-Ray Ordered: Yes # of Views/Limited/Complete: 1 View Indication: Other EP Interpretation: Yes Interpretation: no consolidation, no effusion, no pneumothorax, other - pacer Impression: No acute disease Electronically Signed by: Electronically signed by Tank Lugo MD CT/MRI/US Diagnostic Results CT/MRI/US Diagnostic Results : Imaging Test Ordered: Head Impression No acute intracranial pathology. Last Vital Signs Date Time Temp Pulse Resp B/P (MAP) Pulse Ox O2 Delivery O2 Flow Rate FiO2 04/28/19 17:20 98.1 57 18 140/57 (84) 100 Room Air Status: improved Disposition: ADMITTED INPATIENT Condition: Serious Tank Lugo MD Apr 28, 2019 17:36
[2019-04-28] MEDS: Sodium Chloride 550 ML IV SCH ×2 (17:37→21:10)
[2019-04-28] MEDS ORDERED: Valproate Sodium INJ 1,000 MG in D5W 55 ML IV ONE (17:45)
[2019-04-28 17:56] VITALS: BP 140/57
--- NOTE | 2019-04-28 17:57 | NUR ---
ED Nurse Note:pt. was BIBA from SNF with s/p seizure, pt. is A/Ox3 was placed on playground monitor with padded rails, VSS, c/o headfache given tylenol, IV fluids given with dilantin, blood sent to labs, pt. had CT head done
[2019-04-28 18:10] LABS: BASOPHILS % (AUTO) 0.7 % (0.0-2.0); HEMATOCRIT 36.5 % (37.0-47.0); HEMOGLOBIN 11.7 G/DL (12.0-16.0); LYMPHOCYTES % (AUTO) 34.2 % (20.0-45.0); MEAN CORPUSCULAR VOLUME 105 FL (80-99); NEUTROPHILS % (AUTO) 54.1 % (45.0-75.0); PLATELET COUNT 196 K/UL (150-450); RED BLOOD COUNT 3.49 M/UL (4.20-5.40); WHITE BLOOD COUNT 5.1 K/UL (4.8-10.8)
[2019-04-28 18:27] LABS: ANION GAP 12 mmol/L (5-15); BLOOD UREA NITROGEN 12 mg/dL (7-18); CALCIUM 8.9 MG/DL (8.5-10.1); CARBON DIOXIDE 20 MMOL/L (21-32); CHLORIDE 113 MMOL/L (98-107); CREATININE 0.9 MG/DL (0.55-1.30); POTASSIUM 3.9 MMOL/L (3.5-5.1); SODIUM 145 MMOL/L (136-145)
[2019-04-28 18:33] LABS: ALANINE AMINOTRANSFERASE 33 U/L (12-78); ALBUMIN 2.7 G/DL (3.4-5.0); ALBUMIN/GLOBULIN RATIO 0.8 (1.0-2.7); ALKALINE PHOSPHATASE 68 U/L (46-116); ASPARTATE AMINO TRANSFERASE 47 U/L (15-37); BILIRUBIN,TOTAL 0.3 MG/DL (0.2-1.0); CREATINE KINASE 27 U/L (26-308)
[2019-04-28 18:45] LABS: APPEARANCE,URINE SLIGHTLY CLOUDY; BILIRUBIN, URINE 1+ (NEGATIVE); GLUCOSE, URINE (UA) NEGATIVE (NEGATIVE); KETONES,URINE 1+ (NEGATIVE); LEUKOCYTE ESTERASE ,URINE 2+ (NEGATIVE); NITRITE,URINE NEGATIVE (NEGATIVE); PH,URINE 6 (4.5-8.0); PROTEIN,URINE 2+ (NEGATIVE); UROBILINOGEN,URINE 4 MG/DL (0.0-1.0)
[2019-04-28 18:50] LABS: COLOR,URINE YELLOW
[2019-04-28] MEDS ORDERED: ACETAMINOPHEN325 M1 ORAL (19:14)
[2019-04-28] MEDS ORDERED: ZOFRAN4 M3 ORAL (19:14)
--- NOTE | 2019-04-28 19:14 | NUR ---
HAND-OFF: Report given to Deidra.
[2019-04-28 20:10] VITALS: BP 167/67
--- NOTE | 2019-04-28 20:35 | NUR ---
ED Nurse Note: Pt resting in bed, semi fowlers, offered pt food and drink, pt sitting in high fowlers eating without difficulty, will continue to monitor
--- NOTE | 2019-04-28 21:00 | NUR ---
TRANSFER TO FLOOR: Patient transferred to as ordered, per Akshat. Report given to KATRINA Chatman. Belongings and medications given to . Family and or S/O informed of transfer.
--- NOTE | 2019-04-28 21:39 | NUR ---
NURSE NOTES: Received pt from ED via gurney. Pt transferred to unit and bed without any incident. Pt is A/Ox4. [place] Pt to unit, room, and hospital policies. headline writer is in placed, IV site intact, asymptomatic, and patent. Bed is in the lowest position and locked. Call light within reach. Received report from KATRINA Gay. Belongings list checked and accounted. No seizure activity or signs/symptoms of acute distress noted at this time. Will call Dr. Darling for admission orders.
--- NOTE | 2019-04-28 22:11 | NUR ---
NURSE NOTES: Paged Dr. Darling for admission orders. Awaiting call back.
[2019-04-28 22:39] VITALS: BP 149/59
--- NOTE | 2019-04-28 23:00 | NUR ---
NURSE NOTES: Received admission orders from Dr. Darling. Will note and carry out.
[2019-04-28] MEDS ORDERED: Fleet's Enema 133ml RECTAL PRN (23:45)
[2019-04-28] MEDS ORDERED: Albuterol 90mcg Inhaler 8gm INH PRN (23:45)
[2019-04-28] MEDS ORDERED: Acetaminophen 500mg (ES) tab ORAL PRN (23:45)
[2019-04-29] VITALS (8 sets, daily range): BP systolic 149–187; BP diastolic 58–83
[2019-04-29] MEDS: Sodium Chloride 550 ML IV SCH (00:50)
--- NOTE | 2019-04-29 07:28 | NUR ---
NURSE NOTES: Report received from KATRINA Chatman. Patient asleep, easily awakened by voice. Denies any pain or SOB. AOx4. In RA. IV patent, flushed, SL. Bed on lowest position, side rails upx2, brakes engaged. Call light within easy reach. Addendum: 04/29/19 at 1045 by Lluvia Segura RN Report received from KATRINA Chatman. Patient asleep, easily awakened by voice. Denies any pain or SOB. AOx3. In RA. IV patent, flushed, SL. Bed on lowest position, side rails upx2, brakes engaged. Call light within easy reach
--- NOTE | 2019-04-29 07:38 | NUR ---
HAND-OFF: Report given to KATRINA Teixeira.
--- NOTE | 2019-04-29 08:10 | NUR ---
CASE MANAGEMENT: INITIAL REVIEW 69 YO F CARYN FROM [facility] CC: SZ PMHx: A FIB. HF. HLD. HTN. PACER. DM. SI:NEW ONSET SZ T 98.1 HR 57 RR 18 B/P 140/57 SATS 100% ON RA CL 113 CO2 20 GLU 124 AST 47 IS: KEPPRA IV X1 ATIVAN IV X1 NS BOLUS X1 VALPROATE IV X1 TYLENOL PO X1 PATIENT ADMITTED TO [facility] @ 7754 DCP: PATIENT TO BE DISCHARGED TO SNF ONCE MEDICALLY CLEARED. Addendum: 04/29/19 at 0828 by Sabina Morris CM INTERQUAL MET
[2019-04-29] MEDS: Aspirin EC 81mg tab ORAL SCH (08:25)
[2019-04-29] MEDS: Donepezil 5mg Tab ORAL SCH (08:28)
[2019-04-29] MEDS: Milk of Magnesia 30ml Ud ORAL SCH (08:30)
[2019-04-29] MEDS: Docusate 100mg cap ORAL SCH (08:30)
[2019-04-29] MEDS: Heparin 5000 units/ml inj SUBQ SCH ×2 (08:43→20:34)
[2019-04-29] MEDS ORDERED: Metoprolol Succinate XL 25mg tab ORAL SCH (09:00)
[2019-04-29] MEDS ORDERED: Vitamin D 400 INTLU TAB ORAL SCH (09:00)
[2019-04-29] MEDS ORDERED: Zinc Sulfate 220mg cap ORAL SCH (09:00)
--- NOTE | 2019-04-29 11:26 | Diagnostic Imaging Report ---
Indication: Headache. Seizure Technique: Contiguous 5 mm thick transaxial imaging of the head obtained in a Siemens Sensation [address] scanner. Soft tissue and bone windows generated. Automatic Exposure Control was utilized. Total Dose length Product (DLP): 1305.[address] Dose Index Volume (CTDIvol): 70.38 mGy Comparison: none Findings: There is mild prominence of the ventricles, basal cisterns, and cerebral sulci consistent with atrophy. Mild, nonspecific, white matter hypoattenuation is noted throughout the brain consistent with chronic small vessel disease. There is no midline shift, edema, acute hemorrhage, mass effect, or abnormal extra-axial fluid collections. Bones are unremarkable. Impression: No acute intracranial bleed, mass effect or edema. Mild atrophy of the brain. Nonspecific white matter hypoattenuation probably due to chronic small vessel disease. The CT scanner at [facility] is accredited by the [employer] and the scans are performed using dose optimization techniques as appropriate to a performed exam including Automatic Exposure control.
--- NOTE | 2019-04-29 12:52 | Diagnostic Imaging Report ---
Indication: Dyspnea Comparison: 03/28/2019 A single view chest radiograph was obtained. Findings: Cardiomediastinal appearance is within normal limits for age. Pacemaker noted on the left once again. Aorta is mildly calcified. The lungs are clear. Pulmonary vascularity is appropriate. The diaphragmatic contour is smooth and costophrenic angles are sharp. No pleural effusions are identified. The bones are osteopenic. Impression: No acute findings
--- NOTE | 2019-04-29 15:34 | Cardiology Report ---
APPROVED REPORT EKG Measurement Heart [id number] TN [id number] Normal sinus rhythm Possible Anterior infarct, age undetermined Abnormal ECG
--- NOTE | 2019-04-29 18:45 | Consultation ---
DATE OF CONSULTATION: 04/29/2019 HISTORY OF PRESENT ILLNESS: The patient is a 69-year-old female with history of major depressive disorder, schizophrenia, seizure disorder, diabetes mellitus, hypertension who has been admitted to the hospital due to seizure. The patient was admitted to the emergency room and presents with anxiety, agitation, mood lability, poor insight into her medical condition, has memory impairment. PAST PSYCHIATRIC HISTORY: Schizophrenia, depression. The patient has been on psychotropic medication. PAST MEDICAL HISTORY: Hypertension, diabetes mellitus, atrial fibrillation. ALLERGIES: She has no known drug allergies. SUBSTANCE ABUSE HISTORY: No known history of illicit drug use or alcohol. MENTAL STATUS EXAMINATION: The patient is alert and oriented times self, place, poor insight into the situation she is in. Mood is labile. Affect constricted, congruent with mood. Thought process is concrete. Thought content, no suicidal or homicidal ideations. Positive for delusions. Insight and judgment non-existent. Memory is impaired. ASSESSMENT: [place] I Schizophrenia. Major depressive disorder. Cognitive impairment [place] II Deferred. [place] III Seizures. [place] IV Low [place] V 20. PLAN: 1. 2. Continue Lexapro. 3. The patient was started on Depakote 750 p.o. at bedtime which is going to target seizure symptoms as well behavior issues. 4. We will continue follow and readjust the medications.. Jourdan Lackey M.D. DR: Louie JOB#: [id number] CC:
--- NOTE | 2019-04-29 19:21 | NUR ---
HAND-OFF: Report given to KATRINA Merida. Patient in stable condition. AOx2 at this time.
--- NOTE | 2019-04-29 19:25 | NUR ---
NURSE NOTES: Report received from KATRINA Teixeira. Pt is in stable condition and lying comfortably in bed. Bed in the lowest position, bed brakes engaged, side rails up x3 with call light within reach. Will continue to monitor.
--- NOTE | 2019-04-29 21:00 | History and Physical Report ---
DATE OF ADMISSION: 04/28/2019 CHIEF COMPLAINT: Uncontrollable seizures. HISTORY OF PRESENT ILLNESS: This is a 69-year-old female from [facility] under the care of Dr. Didi Gonzales. I have been asked by the attending physician to take care of this patient while she is in this hospital. She had 2 witnessed tonic-clonic seizures. She was transferred to this hospital via paramedics. PAST MEDICAL HISTORY: 1. Type 2 diabetes mellitus. 2. Hypertensive cardiovascular disease. 3. Congestive heart failure. 4. Paroxysmal atrial fibrillation. 5. Organic brain syndrome. 6. Schizophrenia. 7. Epileptic seizures, status post CVA. MEDICATIONS: The list is extremely long and includes the following medications. Tylenol p.r.n., Ventolin HFA, baby aspirin, atorvastatin, Dulcolax, Plavix, Colace, Aricept, Lexapro, Lasix, labetalol, acidophilus, latanoprost eye drops, loratadine, lorazepam, milk of magnesia, metoprolol succinate, Remeron, Fleet enema, Zofran, potassium chloride, Seroquel, risperidone, vitamin B, zinc sulfate. ALLERGIES: No known drug allergies. FAMILY HISTORY: Unremarkable. SOCIAL HISTORY: Lives in a mcc. REVIEW OF SYSTEMS: The patient is confused, unable to give any consistent information. PHYSICAL EXAMINATION: GENERAL: This is an elderly, slender female, who is in no acute distress. VITAL SIGNS: Blood pressure 169/64, pulse 66 regular, respiratory rate 18. HEENT: The head is normocephalic and atraumatic. Pupils are equal, round, and reactive to light and accommodation consensually. NECK: Supple. Trachea midline. There was no lymphadenopathy or thyromegaly. LUNGS: Clear to auscultation and percussion. HEART: Regular rate and rhythm without rubs, murmurs, or gallops. ABDOMEN: Soft, nontender. Bowel sounds were active. EXTREMITIES: No clubbing, cyanosis, or edema. NEUROLOGIC: She is alert, but confused. There were no gross focal findings. LABORATORY AND ANCILLARY DATA: CBC within normal limits. Chemistry, glucose 124 and albumin 2.7, otherwise within normal limits IMAGING REPORTS: Chest x-ray, no acute findings. EKG, normal sinus rhythm. No signs of acute ischemia. CAT scan, atrophy. No acute findings. ASSESSMENT: 1. Seizures, out of control. 2. Polypharmacy. PLAN: 1. Adjust the patient's antiepileptic medications. 2. Reduce polypharmacy. Rg Darling M.D. DR: FRIDA JOB#: [id number] CC:
[2019-04-30] VITALS: BP 129/54
[2019-04-30 04:00] VITALS: BP 120/59
--- NOTE | 2019-04-30 07:18 | NUR ---
HAND-OFF: Report given to KATRINA Teixeira. Plan of care endorsed.
--- NOTE | 2019-04-30 07:18 | NUR ---
NURSE NOTES: Report received from KATRINA Merida. Patient awake. IN RA. Denies any pain or SOB. AOx2. Taking of her child monitor at this time. "I don't want it now! help me take it off..." Education given. Will try again after breakfast. Bed on lowest position, side rails upx2, brakes engaged, alarm on. Call light within easy reach.
[2019-04-30 08:00] VITALS: BP 120/53
[2019-04-30] MEDS: Milk of Magnesia 30ml Ud ORAL SCH (09:00)
[2019-04-30] MEDS: Docusate 100mg cap ORAL SCH (09:00)
[2019-04-30] MEDS: Donepezil 5mg Tab ORAL SCH (09:03)
[2019-04-30] MEDS: Aspirin EC 81mg tab ORAL SCH (09:04)
[2019-04-30] MEDS: Heparin 5000 units/ml inj SUBQ SCH ×2 (09:09→20:43)
[2019-04-30 12:00] VITALS: BP 116/53
--- NOTE | 2019-04-30 12:58 | General Progress Note ---
Assessment/Plan Assessment/Plan: Sz D/O under Control Subjective Allergies: Coded Allergies: No Known Allergies (Unverified , 03/28/19) Subjective No c/o Objective Last 24 Hour Vital Signs Date Time Temp Pulse Resp B/P (MAP) Pulse Ox O2 Delivery O2 Flow Rate FiO2 04/30/19 09:09 65 120/53 04/30/19 09:02 65 120/53 04/30/19 09:00 Room Air 04/30/19 08:00 66 04/30/19 08:00 97.7 67 20 120/53 (75) 98 04/30/19 08:00 65 18 98 Room Air 21 04/30/19 04:00 98.4 68 20 120/59 (79) 99 04/30/19 04:00 64 04/30/19 00:00 70 04/30/19 00:00 97.9 63 20 129/54 (79) 100 04/29/19 21:00 Room Air 04/29/19 20:44 68 187/70 04/29/19 20:00 69 18 95 Room Air 21 04/29/19 20:00 66 04/29/19 20:00 98.1 68 20 187/70 (109) 100 04/29/19 16:00 65 04/29/19 16:00 98.1 65 18 149/71 (97) 99 04/29/19 14:30 98.0 62 152/58 (89) 99 04/29/19 13:01 66 169/64 Intake and Output 04/29/19 04/30/19 19:00 07:00 Intake Total 700 ml Balance 700 ml Intake Oral 700 ml # Voids 4 1 # Bowel Movements 2 Height (Feet): 5 Height (Inches): 6.00 Weight (Pounds): 146 Objective CV RR Lungs CTA Abd SNT. BS + E No CCE Rg Darling MD Apr 30, 2019 12:58
[2019-04-30 16:00] VITALS: BP 121/59
--- NOTE | 2019-04-30 19:09 | NUR ---
HAND-OFF: Report given to KATRINA Ramirez. Patient in stable condition. VS stable. Sleeping comfortably. No distress noted.
--- NOTE | 2019-04-30 19:18 | NUR ---
NURSE NOTES: Report received from KATRINA Teixeira. Pt is in stable condition. Bed in lowest position, bed brakes engaged, side rails up x3 and padded with call light within reach. Will continue to monitor
[2019-04-30 20:00] VITALS: BP 122/49
[2019-04-30] MEDS: LORazepam 0.5mg tab ORAL PRN (20:30)
--- NOTE | 2019-04-30 21:15 | Progress Note ---
DATE: 04/30/2019 SUBJECTIVE: The patient is in bed, still has episodes of agitation. Poor insight and judgment. Not engaged during the evaluation. At times, the patient is irritable, was noncompliant with medication today. MENTAL STATUS EXAMINATION: The patient is alert and oriented times self and place. Disoriented. Mood is irritable. Affect is flat. Thought process, there is a paucity of thought content. Thought content, no suicidal or homicidal ideations. ASSESSMENT: [place] I Dementia with behavioral disturbance, schizophrenia. [place] II Deferred. [place] III Seizure. [place] IV Low. [place] V 40. PLAN: 1. The patient will be continued on Lexapro. 2. Continue the risperidone 1 mg p.o. b.i.d. 3. Continue to follow and readjust the medications. Jourdan Lackey M.D. DR: LOUIS JOB#: [id number] CC:
[2019-05-01] VITALS: BP 129/67
[2019-05-01] MEDS: LORazepam 0.5mg tab ORAL PRN (02:31)
[2019-05-01 04:00] VITALS: BP 124/60
--- NOTE | 2019-05-01 07:33 | NUR ---
HAND-OFF: Report given to Ted/KATRINA Bettencourt. Plan of care endorsed.
[2019-05-01 08:00] VITALS: BP 130/58
--- NOTE | 2019-05-01 08:18 | NUR ---
NURSE NOTES: pt in bed in low position, call light at bedside, pt confused pt was given ativan prior to shift, pt groggy, pt attempting to get out of bed and is very unstable, pt is resistive to care, and does not follow direction, no IV access as she pulled out on prior shift, pt denies pain, wants to leave, A Ox1 and uncooperative, will contact Md for restraints, waiting on reply, other than the confusion no s/s of distress or sob noted.
--- NOTE | 2019-05-01 08:51 | NUR ---
NURSE NOTES: Pt was being combative, already removed her IV line, pt attempted to get out of bed, according to night nurse ativan PO was given, pt seems confused and only oriented to name. pt keeps trying to get out of bed and asking for Victor Hugo, who was not present in room, pt seems to be experiencing hallucinations. called md for restraints.. pt is high risk for fall..
[2019-05-01] MEDS: Heparin 5000 units/ml inj SUBQ SCH (09:44)
[2019-05-01] MEDS: Milk of Magnesia 30ml Ud ORAL SCH (09:44)
[2019-05-01] MEDS: Donepezil 5mg Tab ORAL SCH (09:45)
[2019-05-01] MEDS: Aspirin EC 81mg tab ORAL SCH (09:46)
[2019-05-01] MEDS: Docusate 100mg cap ORAL SCH (09:46)
--- NOTE | 2019-05-01 11:11 | General Progress Note ---
Assessment/Plan Assessment/Plan: Sz D/O under Control DC to SNF Subjective Allergies: Coded Allergies: No Known Allergies (Unverified , 03/28/19) Subjective No c/o Objective Last 24 Hour Vital Signs Date Time Temp Pulse Resp B/P (MAP) Pulse Ox O2 Delivery O2 Flow Rate FiO2 05/01/19 09:46 73 130/58 05/01/19 09:45 73 130/58 05/01/19 09:00 Room Air 05/01/19 08:00 97.9 73 19 130/58 (82) 98 05/01/19 08:00 72 05/01/19 04:00 77 05/01/19 04:00 97.9 71 16 124/60 (81) 99 05/01/19 00:00 98.1 68 18 129/67 (87) 98 05/01/19 00:00 68 04/30/19 21:00 Room Air 04/30/19 20:42 63 122/49 04/30/19 20:00 97.9 63 18 122/49 (73) 97 04/30/19 20:00 62 04/30/19 19:43 68 18 97 Room Air 21 04/30/19 16:00 98.1 61 18 121/59 (79) 99 04/30/19 16:00 57 04/30/19 12:00 97.3 67 20 116/53 (74) 98 04/30/19 12:00 63 Intake and Output 04/30/19 05/01/19 18:59 06:59 # Voids 4 1 Height (Feet): 5 Height (Inches): 6.00 Weight (Pounds): 146 Objective CV RR Lungs CTA Abd SNT. BS + E No CCE Rg Darling MD May 01, 2019 11:11
[2019-05-01] MEDS ORDERED: ATIVAN0.5 MG ORAL (11:16)
[2019-05-01] MEDS ORDERED: RISPERDAL1 MG ORAL (11:16)
[2019-05-01] MEDS ORDERED: MIRTAZAPINE15 M3 ORAL (11:16)
[2019-05-01] MEDS ORDERED: DEPAKOTE250 MG ORAL (11:16)
[2019-05-01] MEDS ORDERED: KEPPRA500 MG ORAL (11:16)
[2019-05-01 12:00] VITALS: BP 124/60
--- NOTE | 2019-05-01 12:05 | NUR ---
DISCHARGE DISPOSITION: PLEASE READ PATIENT TO BE DISCHARGED TO [facility] ROOM: [address] T: [phone]>>> CALL RN FOR REPORT [facility] ETA 1400 DAUGHTER ALVERTO HURTADO NOTIFIED AND AGREEABLE TO DC.
--- NOTE | 2019-05-01 15:22 | NUR ---
NURSE NOTES: pt. going back to [facility] via EMT. Pt. in stable condition V/S within normal limit, AOX2, IV was discontinued, no bleeding was observed. entry analyst and ID band removed prior to DC. No sign of distress or shortness of breath at this time. Reviewed all belonging with pt. Pt was too confused to sign. After care plan and med reconciliation was done. Pt left with all her belonging, they were given to EMT.
--- NOTE | 2019-05-02 01:30 | Progress Note ---
DATE: 05/01/2019 SUBJECTIVE: The patient is discharged. This is a late entry. The patient presents with disorganized speech and behavior. At some point, the patient has been self-restrained, severely agitated, poor memory, and not engaged. No insight or judgment into current medical condition. MENTAL STATUS EXAMINATION: The patient is alert and oriented times self. Mood is agitated. Affect is constricted. Congruent with mood. Thought process is concrete. Thought content, no suicidal or homicidal ideation. ASSESSMENT: Stable. PLAN: 1. The patient will be continued on current medication. 2. Provide the patient with reality orientation and supportive therapy. Jourdan Lackey M.D. DR: GABRIEL JOB#: [id number] CC:
--- NOTE | 2019-05-02 19:25 | Discharge Summary ---
Discharge Summary Discharge Summary _ DATE OF ADMISSION: 04/28/2019 DATE OF DISCHARGE: 05/01/2019 DISCHARGED BY: Dr. Darling REASON FOR ADMISSION: 69 years old female, with past medical history of hypertensive cardiovascular disease, congestive heart failure, paroxysmal atrial fibrillation, type 2 diabetes mellitus, organic brain syndrome, schizophrenia, epileptic seizures, status post CVA, resident of detention facility, had two witnessed tonic- clonic seizure 15 minutes apart at the facility. Patient subsequently was transferred to the emergency room for further evaluation and management. Patient was not on any anticonvulsant medication at this time. Accu-Chek was stable. Patient was incontinent, but was able to respond. However patient had a history of prior stroke and had some expressive aphasia. No vomiting, no chest pain, no palpitation. Upon evaluation vital signs were stable. Laboratory work-up revealed no leukocytosis, hemoglobin 11.7, hematocrit 36.5. Platelets 196. Sodium 145, potassium 3.9. BUN 12, creatinine 0.9. Glucose 124. AST 47, ALT 33. Troponin negative. EKG revealed sinus rhythm, no acute ischemic changes. Urinalysis revealed +2 protein, +2 leukocyte esterase, no pyuria and few bacteria. Urine toxicology screen was positive for benzodiazepine. Chest x-ray revealed no acute cardiopulmonary pathology. Pacemaker was noted. CT of the head revealed no acute intracranial pathology. Patient subsequently was admitted to telemetry floor for further evaluation and management. CONSULTANTS: psychiatrist [facility] COURSE: Patient admitted to telemetry floor. Seizure precautions were maintained. Patient started on antiepileptic medication/Keppra. Psychiatry consult was requested. SNF medications were resumed, but polypharmacy was reduced. Blood pressure was managed with calcium channel jeffrey and beta-jeffrey. Blood pressure remained stable. DVT prophylaxis provided. Antiplatelet therapy with Plavix and statin were continued. Maintenance dose of Lasix was continued with close monitoring of volumes and cardiorenal parameters. Blood sugar was closely monitored and remained stable.. Psychiatrist followed. Per psychiatrist next Patient had schizophrenia, major depressive disorder and cognitive impairment. Psychiatrist recommended continue current psychiatric medication regimen, but also started started patient on Depakote to target seizure symptoms as well as the behavior issues. Reality orientation and supportive therapy provided. No further seizure activity. Continue Depakote and Keppra at the facility. Patient was stabilized and ready for transfer back to detention [facility] for continuation of care. FINAL DIAGNOSES: Seizures out of control with breakthrough episode Epileptic seizure, status post CVA Polypharmacy Hypertensive cardiovascular disease Congestive heart failure Paroxysmal atrial fibrillation Schizophrenia Major depressive disorder Cognitive impairment DISCHARGE MEDICATIONS: See Medication Reconciliation list. DISCHARGE INSTRUCTIONS: Patient was discharged to the detention facility. Line Follow up with medical doctor at the facility. I have been assigned to dictate discharge summary for this account. I was not involved in the patient's management. Osiris Jeffries NP May 02, 2019 19:25
== END 2019-05-01 15:34 | DRG 101 ==
LOC: EDBD 17:20 → EMR 18:26 → 2E 18:34 → EDBEDREQ 20:50 → 2E 04-30 15:33
DX: G40.919 Epilepsy, unspecified, intractable, without status epilepticus (principal); F03.91 Unspecified dementia, unspecified severity, with behavioral disturbance; E11.9 Type 2 diabetes mellitus without complications; M06.9 Rheumatoid arthritis, unspecified; I11.0 Hypertensive heart disease with heart failure; I48.0 Paroxysmal atrial fibrillation; F09 Unspecified mental disorder due to known physiological condition; F20.9 Schizophrenia, unspecified; Z86.73 Personal history of transient ischemic attack (TIA), and cerebral infarction without residual deficits; Z79.02 Long term (current) use of antithrombotics/antiplatelets; Z79.82 Long term (current) use of aspirin; Z79.899 Other long term (current) drug therapy; I50.9 Heart failure, unspecified; F32.9 Major depressive disorder, single episode, unspecified
CPT/HCPCS: 36415; 70450; 71045; 80053; 80299; 80307; 81003; 82550; 84484; 85025; 87081; 93005; 94664; 96365; 96366; 96375; 99285; J8499

== ENCOUNTER 2020-01-23 15:11 | Inpatient (IN) | payer MEDICARE, OTHER ==
[~2020-01-23] VITALS: Ht 167.6 cm; Wt 62.9 kg
[~2020-01-23 15:11] MED LIST changes: +ATIVAN0.5 MG ORAL; +DEPAKOTE250 MG ORAL; +KEPPRA500 MG ORAL; +MIRTAZAPINE15 M3 ORAL; +RISPERDAL1 MG ORAL; +ZOFRAN4 M3 ORAL
[2020-01-23] MEDS ORDERED: Midazolam 2mg/2ml Inj IM ONE (15:45)
[2020-01-23] MEDS ORDERED: Haloperidol 5mg/ml Inj IM ONE (15:45)
--- NOTE | 2020-01-23 15:54 | Emergency Room Report ---
History of Present Illness General Chief Complaint: Behavioral Complaint Source: Patient Present Illness HPI Patient presents with complaints of agitation and confusion The staff at the facility report the patient has been aggressive and trying to hit them At times patient appears confused and talking to himself History of present illness this significantly limited given the patient's presentation upon arrival patient here is also aggressive and agitated requiring sedation There was no reports of vomiting or diarrhea Allergies: Coded Allergies: No Known Allergies (Unverified , 03/28/19) COVID-19 Screening Contact w/high risk pt: No Recent Travel to affected area: No Experienced COVID-19 symptoms?: No Patient History Limited by: medical condition Past Medical History: see triage record Reviewed Nursing Documentation: PMH: Agreed; PSxH: Agreed Nursing Documentation-PMH Hx Cardiac Problems: Yes - AFIB Hx Hypertension: Yes Hx Pacemaker: Yes Hx Diabetes: Yes Hx Cancer: No Hx Gastrointestinal Problems: No Hx Cerebrovascular Accident: Yes Hx Alzheimer's Disease: Yes Hx Weakness: Yes Review of Systems All Other Systems: limited - Other than the ones mentioned in the history of present illness all others are reviewed however they do stay limited due to the patient's mental status Physical Exam Vital Signs Date Time Temp Pulse Resp B/P (MAP) Pulse Ox O2 Delivery O2 Flow Rate FiO2 01/23/20 15:14 98.2 70 16 142/67 (92) 98 Room Air Sp02 EP Interpretation: reviewed, normal General Appearance: no apparent distress Head: normocephalic, atraumatic Eyes: bilateral eye PERRL, bilateral eye EOMI ENT: hearing grossly normal, TMs + canals normal, uvula midline, dry mucus membranes Neck: full range of motion, supple, no meningismus, no bony tend Respiratory: lungs clear, normal breath sounds, no rhonchi, no respiratory distress, no retraction, no accessory muscle use Cardiovascular #1: normal peripheral pulses, regular rate, rhythm, no edema, no gallop, no JVD, no murmur Gastrointestinal: normal bowel sounds, non tender, soft, no mass, no organomegaly, non-distended, no guarding, no hernia, no pulsatile mass, no rebound Genitourinary: no CVA tenderness Musculoskeletal: normal inspection Neurologic: alert, responsive Psychiatric: other - Patient at times comes very agitated cursing at the staff Skin: no rash Lymphatic: normal inspection, no adenopathy Procedures Critical Care Time Critical Care Time 50 minutes for multiple re-evaluations, multiple medical reexaminations concern for deteriorating condition and possible not including procedural time Medical Decision Making Diagnostic Impression: Primary Impression: Encephalopathy Additional Impression: Dehydration ER Course Patient is a fairly complex patient with multiple differential to consideration including but not limited to cardiac cardiopulmonary and vascular emergencies Differential such as neurological and infectious process also entertained Patient's blood work is initiated further IV hydration provided patient required multiple re-interventions Continues to be agitated throughout her stay in the ER requiring further sedation And is admitted for further care Labs Test 01/23/20 16:15 White Blood Count 6.8 K/UL (4.8-10.8) Red Blood Count 3.73 M/UL (4.20-5.40) Hemoglobin 11.7 G/DL (12.0-16.0) Hematocrit 35.7 % (37.0-47.0) Mean Corpuscular Volume 96 FL (80-99) Mean Corpuscular Hemoglobin 31.2 PG (27.0-31.0) Mean Corpuscular Hemoglobin Concent 32.6 G/DL (32.0-36.0) Red Cell Distribution Width 13.4 % (11.6-14.8) Platelet Count 190 K/UL (150-450) Mean Platelet Volume 7.9 FL (6.5-10.1) Neutrophils (%) (Auto) 58.0 % (45.0-75.0) Lymphocytes (%) (Auto) 20.2 % (20.0-45.0) Monocytes (%) (Auto) 19.1 % (1.0-10.0) Eosinophils (%) (Auto) 0.8 % (0.0-3.0) Basophils (%) (Auto) 1.9 % (0.0-2.0) Urine Color Yellow Urine Appearance Clear Urine pH 5 (4.5-8.0) Urine Specific [place] 1.025 (1.005-1.035) Urine Protein Negative (NEGATIVE) Urine Glucose (UA) Negative (NEGATIVE) Urine Ketones Negative (NEGATIVE) Urine Blood Negative (NEGATIVE) Urine Nitrite Negative (NEGATIVE) Urine Bilirubin Negative (NEGATIVE) Urine Urobilinogen Normal MG/DL (0.0-1.0) Urine Leukocyte Esterase Negative (NEGATIVE) Sodium Level 138 MMOL/L (136-145) Potassium Level 5.3 MMOL/L (3.5-5.1) Chloride Level 104 MMOL/L (98-107) Carbon Dioxide Level 25 MMOL/L (21-32) Anion Gap 9 mmol/L (5-15) Blood Urea Nitrogen 45 mg/dL (7-18) Creatinine 1.0 MG/DL (0.55-1.30) Estimat Glomerular Filtration Rate > 60 mL/min (>60) Glucose Level 115 MG/DL (74-106) Calcium Level 9.3 MG/DL (8.5-10.1) Total Bilirubin 0.7 MG/DL (0.2-1.0) Aspartate Amino Transf (AST/SGOT) 218 U/L (15-37) Alanine Aminotransferase (ALT/SGPT) 132 U/L (12-78) Alkaline Phosphatase 102 U/L (46-116) Total Creatine Kinase 250 U/L (26-308) Troponin I 0.000 ng/mL (0.000-0.056) Total Protein 7.4 G/DL (6.4-8.2) Albumin 3.2 G/DL (3.4-5.0) Globulin 4.2 g/dL Albumin/Globulin Ratio 0.8 (1.0-2.7) Rhythm Strip Diag. Results EP Interpretation: yes Rate: 67 Rhythm: NSR, no PVC's, no ectopy Chest X-Ray Diagnostic Results Chest X-Ray Diagnostic Results : Chest X-Ray Ordered: Yes # of Views/Limited/Complete: 1 View Indication: Chest Pain EP Interpretation: Yes Interpretation: no consolidation, no effusion, no pneumothorax Impression: No acute disease Electronically Signed by: Deon Kenney DO Last Vital Signs Date Time Temp Pulse Resp B/P (MAP) Pulse Ox O2 Delivery O2 Flow Rate FiO2 01/23/20 15:14 98.2 70 16 142/67 (92) 98 Room Air Status: improved Additional Instructions: Admit to inpatient care in improved yet serious condition Deon Kenney DO Jan 23, 2020 15:54
[2020-01-23 17:00] LABS: APPEARANCE,URINE CLEAR; BASOPHILS % (AUTO) 1.9 % (0.0-2.0); BILIRUBIN, URINE NEGATIVE (NEGATIVE); EOSINOPHILS % (AUTO) 0.8 % (0.0-3.0); GLUCOSE, URINE (UA) NEGATIVE (NEGATIVE); HEMATOCRIT 35.7 % (37.0-47.0); HEMOGLOBIN 11.7 G/DL (12.0-16.0); KETONES,URINE NEGATIVE (NEGATIVE); LEUKOCYTE ESTERASE ,URINE NEGATIVE (NEGATIVE); LYMPHOCYTES % (AUTO) 20.2 % (20.0-45.0); MEAN CORPUSCULAR VOLUME 96 FL (80-99); MONOCYTES % (AUTO) 19.1 % (1.0-10.0); NITRITE,URINE NEGATIVE (NEGATIVE); PH,URINE 5 (4.5-8.0); PLATELET COUNT 190 K/UL (150-450); PROTEIN,URINE NEGATIVE (NEGATIVE); RED BLOOD COUNT 3.73 M/UL (4.20-5.40); RED CELL DISTRIBUTION WIDTH 13.4 % (11.6-14.8); UROBILINOGEN,URINE NORMAL MG/DL (0.0-1.0); WHITE BLOOD COUNT 6.8 K/UL (4.8-10.8)
[2020-01-23 17:01] LABS: COLOR,URINE YELLOW
[2020-01-23 17:11] LABS: ANION GAP 9 mmol/L (5-15); BLOOD UREA NITROGEN 45 mg/dL (7-18); CALCIUM 9.3 MG/DL (8.5-10.1); CARBON DIOXIDE 25 MMOL/L (21-32); CHLORIDE 104 MMOL/L (98-107); POTASSIUM 5.3 MMOL/L (3.5-5.1); SODIUM 138 MMOL/L (136-145)
[2020-01-23 17:16] LABS: ALANINE AMINOTRANSFERASE 132 U/L (12-78); ALBUMIN 3.2 G/DL (3.4-5.0); ALBUMIN/GLOBULIN RATIO 0.8 (1.0-2.7); ALKALINE PHOSPHATASE 102 U/L (46-116); ASPARTATE AMINO TRANSFERASE 218 U/L (15-37); BILIRUBIN,TOTAL 0.7 MG/DL (0.2-1.0); CREATINE KINASE 250 U/L (26-308)
[2020-01-23 17:30] VITALS: BP 142/67
--- NOTE | 2020-01-23 17:43 | Diagnostic Imaging Report ---
EXAM: XR Chest, 1 View CLINICAL HISTORY: CP TECHNIQUE: Frontal view of the chest. COMPARISON: 04/28/2019. FINDINGS: Lungs: No focal consolidation. Pleural space: Unremarkable. No pneumothorax. Heart: Unremarkable. No cardiomegaly. Mediastinum: Unremarkable. Bones/joints: Unremarkable. Tubes, lines and devices: Left chest cardiac pacer. IMPRESSION: No focal consolidation.
[2020-01-23] MEDS ORDERED: Midazolam 2mg/2ml Inj IVP ONE (18:00)
[2020-01-23 18:55] VITALS: BP 139/69
[2020-01-23] MEDS ORDERED: DIOVAN320 MG ORAL (20:42)
[2020-01-23] MEDS ORDERED: CATAPRES0.1 MG ORAL (20:42)
[2020-01-23] MEDS ORDERED: DOXAZOSIN MESYLA4 MG ORAL (20:42)
[2020-01-23] MEDS ORDERED: RISPERDAL2 MG ORAL (20:42)
[2020-01-23] MEDS ORDERED: COLACE100 MG ORAL (20:42)
[2020-01-23 20:50] VITALS: BP 96/50
[2020-01-23] MEDS ORDERED: LORazepam Inj 2mg/ml 1ml IV PRN (21:15)
[2020-01-23] MEDS: Lactobacillus-GG tablet ORAL SCH (21:48)
[2020-01-24] VITALS (8 sets, daily range): BP systolic 103–137; BP diastolic 46–88
--- NOTE | 2020-01-24 04:14 | Consultation ---
DATE OF CONSULTATION: 01/23/2020 CONSULTING PHYSICIAN: Jourdan Lackey M.D. HISTORY OF PRESENT ILLNESS: The patient is a 69-year-old female and I am well familiar with this patient. The patient was recently admitted at [facility] who has been admitted to the hospital due to confusion and aggressive behavior. The patient was hitting the staff and was uncooperative. The patient is easily agitated. She refused the cocktail in the ER. PAST PSYCHIATRIC HISTORY: Significant for schizophrenia. PAST MEDICAL HISTORY: Significant for COPD and hypertension. ALLERGIES: No known drug allergies. SUBSTANCE ABUSE HISTORY: No known history of illicit drug use or alcohol. MENTAL STATUS EXAMINATION: The patient is alert and oriented times self and place. Mood is agitated. Affect is flat. Thought process, there is a opacity of thought content. Thought content, no suicidal or homicidal ideation. Cognition is impaired. Insight and judgment impaired. ASSESSMENT: [place] I Schizophrenia. Major depressive disorder. [place] II Deferred. [place] III As above. [place] IV Low. [place] V 20 PLAN: 1. Risperidone 3 mg twice a day. 2. Remeron 15 at bedtime. 3. Continue to follow and readjust the medications. Jourdan Lackey M.D. DR: Chano JOB#: [id number] CC:
[2020-01-24] MEDS: Doxazosin 1mg Tab ORAL SCH (08:21)
[2020-01-24] MEDS: Docusate 100mg cap ORAL SCH (08:21)
[2020-01-24] MEDS: Eliquis 5mg tablet ORAL SCH ×2 (08:21→17:21)
--- NOTE | 2020-01-24 10:39 | General Progress Note ---
Subjective Allergies: Coded Allergies: No Known Allergies (Unverified , 03/28/19) Objective Last 24 Hour Vital Signs Date Time Temp Pulse Resp B/P (MAP) Pulse Ox O2 Delivery O2 Flow Rate FiO2 01/24/20 09:00 Room Air 01/24/20 08:00 98.0 66 17 103/47 (65) 96 01/24/20 05:56 132/88 01/24/20 04:00 97.8 100 16 132/88 (103) 97 01/24/20 00:20 97.9 89 19 110/86 (94) 98 98 01/23/20 21:46 96/50 01/23/20 21:00 80 96/50 01/23/20 20:58 Room Air 01/23/20 20:58 Room Air 01/23/20 20:50 98.4 80 17 96/50 (65) 100 01/23/20 20:35 98.0 100 17 106/62 98 Room Air 01/23/20 18:55 98.0 70 17 139/69 100 Room Air 01/23/20 17:30 98.2 72 16 142/67 98 Room Air 01/23/20 17:30 70 16 Room Air 01/23/20 15:14 98.2 70 16 142/67 (92) 98 Room Air Intake and Output 01/23/20 01/24/20 19:00 07:00 Intake Total 0 ml 240 ml Balance 0 ml 240 ml Intake Oral 0 ml 240 ml # Voids 2 Laboratory Tests 01/23/20 16:15: White Blood Count 6.8, Red Blood Count 3.73L, Hemoglobin 11.7L, Hematocrit 35.7L , Mean Corpuscular Volume 96, Mean Corpuscular Hemoglobin 31.2H, Mean Corpuscular Hemoglobin Concent 32.6, Red Cell Distribution Width 13.4, Platelet Count 190, Mean Platelet Volume 7.9, Neutrophils (%) (Auto) 58.0, Lymphocytes (% ) (Auto) 20.2, Monocytes (%) (Auto) 19.1H, Eosinophils (%) (Auto) 0.8, Basophils (%) (Auto) 1.9, Urine Color Yellow, Urine Appearance Clear, Urine pH 5 , Urine Specific [place] 1.025, Urine Protein Negative, Urine Glucose (UA) Negative, Urine Ketones Negative, Urine Blood Negative, Urine Nitrite Negative, Urine Bilirubin Negative, Urine Urobilinogen Normal, Urine Leukocyte Esterase Negative, Sodium Level 138, Potassium Level 5.3H, Chloride Level 104, Carbon Dioxide Level 25, Anion Gap 9, Blood Urea Nitrogen 45H, Creatinine 1.0, Estimat Glomerular Filtration Rate > 60, Glucose Level 115H, Calcium Level 9.3, Total Bilirubin 0.7, Aspartate Amino Transf (AST/SGOT) 218H, Alanine Aminotransferase (ALT/SGPT) 132H, Alkaline Phosphatase 102, Total Creatine Kinase 250, Troponin I 0.000, Total Protein 7.4, Albumin 3.2L, Globulin 4.2, Albumin/Globulin Ratio 0.8L Height (Feet): 5 Height (Inches): 6.00 Weight (Pounds): 135 Vitor Dunn MD Jan 24, 2020 10:39
--- NOTE | 2020-01-24 10:39 | History & Physical ---
History and Physical History & Physicial HPI 69 year old Patient presents with worsening agitation and confusion The staff at the facility report the patient has been aggressive and trying to hit them At times patient appears confused and easily agitated. History is limited. overall care reviewed patient admitted for psychiatric evaluation and support. Patient too high level for SNF due to the above Patient was also aggressive and agitated requiring sedation in the ER Allergies: Coded Allergies: No Known Allergies (Unverified , 03/28/19) COVID-19 Screening Contact w/high risk pt: No Recent Travel to affected area: No Experienced COVID-19 symptoms?: No Patient History Past Medical History: psychosis, CVA, dementia, Afib Reviewed of systems: unable Family history: unable to obtain MEDS: reviewed and reconciled Physical WDWN NAD clear breath sounds bilaterally without rhonchi or wheeze [id number] without MRG NABS nontender no HSM no CCE nonfocal Labs Test 01/23/20 16:15 White Blood Count 6.8 K/UL (4.8-10.8) Red Blood Count 3.73 M/UL (4.20-5.40) Hemoglobin 11.7 G/DL (12.0-16.0) Hematocrit 35.7 % (37.0-47.0) Mean Corpuscular Volume 96 FL (80-99) Mean Corpuscular Hemoglobin 31.2 PG (27.0-31.0) Mean Corpuscular Hemoglobin Concent 32.6 G/DL (32.0-36.0) Red Cell Distribution Width 13.4 % (11.6-14.8) Platelet Count 190 K/UL (150-450) Mean Platelet Volume 7.9 FL (6.5-10.1) Neutrophils (%) (Auto) 58.0 % (45.0-75.0) Lymphocytes (%) (Auto) 20.2 % (20.0-45.0) Monocytes (%) (Auto) 19.1 % (1.0-10.0) Eosinophils (%) (Auto) 0.8 % (0.0-3.0) Basophils (%) (Auto) 1.9 % (0.0-2.0) Urine Color Yellow Urine Appearance Clear Urine pH 5 (4.5-8.0) Urine Specific [place] 1.025 (1.005-1.035) Urine Protein Negative (NEGATIVE) Urine Glucose (UA) Negative (NEGATIVE) Urine Ketones Negative (NEGATIVE) Urine Blood Negative (NEGATIVE) Urine Nitrite Negative (NEGATIVE) Urine Bilirubin Negative (NEGATIVE) Urine Urobilinogen Normal MG/DL (0.0-1.0) Urine Leukocyte Esterase Negative (NEGATIVE) Sodium Level 138 MMOL/L (136-145) Potassium Level 5.3 MMOL/L (3.5-5.1) Chloride Level 104 MMOL/L (98-107) Carbon Dioxide Level 25 MMOL/L (21-32) Anion Gap 9 mmol/L (5-15) Blood Urea Nitrogen 45 mg/dL (7-18) Creatinine 1.0 MG/DL (0.55-1.30) Estimat Glomerular Filtration Rate > 60 mL/min (>60) Glucose Level 115 MG/DL (74-106) Calcium Level 9.3 MG/DL (8.5-10.1) Total Bilirubin 0.7 MG/DL (0.2-1.0) Aspartate Amino Transf (AST/SGOT) 218 U/L (15-37) Alanine Aminotransferase (ALT/SGPT) 132 U/L (12-78) Alkaline Phosphatase 102 U/L (46-116) Total Creatine Kinase 250 U/L (26-308) Troponin I 0.000 ng/mL (0.000-0.056) Total Protein 7.4 G/DL (6.4-8.2) Albumin 3.2 G/DL (3.4-5.0) Globulin 4.2 g/dL Albumin/Globulin Ratio 0.8 (1.0-2.7) ASSESSMENT agitation toxic met encephalopathy dementia CVA afib per history PLAN psych care resume snf meds monitor as is await improvement in agitation and then dc back to snf impression, plan, and exam edited and reviewed in detail care discussed with Vitor Puente MD Jan 24, 2020 10:39
[2020-01-24] MEDS: LORazepam 1mg tab ORAL PRN ×2 (15:03→23:03)
[2020-01-24] MEDS: Lactobacillus-GG tablet ORAL SCH (21:22)
[2020-01-25 04:00] VITALS: BP 124/46
[2020-01-25 08:00] VITALS: BP 147/59
--- NOTE | 2020-01-25 09:28 | General Progress Note ---
Assessment/Plan Assessment/Plan: ASSESSMENT agitation toxic met encephalopathy dementia CVA afib per history PLAN psych care snf meds ativan prn restrains as needed monitor as is await improvement in agitation and then dc back to snf impression, plan, and exam edited and reviewed in detail care discussed with RN Subjective ROS Limited/Unobtainable: Yes Allergies: Coded Allergies: No Known Allergies (Unverified , 03/28/19) Subjective extremely agitated needs restraints not yet ready for SNF Objective Last 24 Hour Vital Signs Date Time Temp Pulse Resp B/P (MAP) Pulse Ox O2 Delivery O2 Flow Rate FiO2 01/25/20 08:00 98.1 63 17 147/59 (88) 97 01/25/20 05:05 124/46 01/25/20 04:00 98.0 60 19 124/46 (72) 99 01/24/20 23:28 98.4 72 19 108/53 (71) 99 01/24/20 21:22 115/46 01/24/20 21:00 66 115/46 01/24/20 20:56 Room Air 01/24/20 20:00 98.1 66 19 115/46 (69) 100 01/24/20 16:00 97.3 70 18 134/61 (85) 99 01/24/20 15:02 137/61 01/24/20 15:01 97.0 64 18 137/61 (86) 99 01/24/20 12:00 97.9 69 18 112/52 (72) 96 Intake and Output 01/24/20 01/25/20 19:00 07:00 Intake Total 600 ml Balance 600 ml Intake Oral 600 ml # Voids 2 2 # Bowel Movements 2 1 Labs Test 01/23/20 16:15 White Blood Count 6.8 K/UL (4.8-10.8) Red Blood Count 3.73 M/UL (4.20-5.40) Hemoglobin 11.7 G/DL (12.0-16.0) Hematocrit 35.7 % (37.0-47.0) Mean Corpuscular Volume 96 FL (80-99) Mean Corpuscular Hemoglobin 31.2 PG (27.0-31.0) Mean Corpuscular Hemoglobin Concent 32.6 G/DL (32.0-36.0) Red Cell Distribution Width 13.4 % (11.6-14.8) Platelet Count 190 K/UL (150-450) Mean Platelet Volume 7.9 FL (6.5-10.1) Neutrophils (%) (Auto) 58.0 % (45.0-75.0) Lymphocytes (%) (Auto) 20.2 % (20.0-45.0) Monocytes (%) (Auto) 19.1 % (1.0-10.0) Eosinophils (%) (Auto) 0.8 % (0.0-3.0) Basophils (%) (Auto) 1.9 % (0.0-2.0) Urine Color Yellow Urine Appearance Clear Urine pH 5 (4.5-8.0) Urine Specific [place] 1.025 (1.005-1.035) Urine Protein Negative (NEGATIVE) Urine Glucose (UA) Negative (NEGATIVE) Urine Ketones Negative (NEGATIVE) Urine Blood Negative (NEGATIVE) Urine Nitrite Negative (NEGATIVE) Urine Bilirubin Negative (NEGATIVE) Urine Urobilinogen Normal MG/DL (0.0-1.0) Urine Leukocyte Esterase Negative (NEGATIVE) Sodium Level 138 MMOL/L (136-145) Potassium Level 5.3 MMOL/L (3.5-5.1) Chloride Level 104 MMOL/L (98-107) Carbon Dioxide Level 25 MMOL/L (21-32) Anion Gap 9 mmol/L (5-15) Blood Urea Nitrogen 45 mg/dL (7-18) Creatinine 1.0 MG/DL (0.55-1.30) Estimat Glomerular Filtration Rate > 60 mL/min (>60) Glucose Level 115 MG/DL (74-106) Calcium Level 9.3 MG/DL (8.5-10.1) Total Bilirubin 0.7 MG/DL (0.2-1.0) Aspartate Amino Transf (AST/SGOT) 218 U/L (15-37) Alanine Aminotransferase (ALT/SGPT) 132 U/L (12-78) Alkaline Phosphatase 102 U/L (46-116) Total Creatine Kinase 250 U/L (26-308) Troponin I 0.000 ng/mL (0.000-0.056) Total Protein 7.4 G/DL (6.4-8.2) Albumin 3.2 G/DL (3.4-5.0) Globulin 4.2 g/dL Albumin/Globulin Ratio 0.8 (1.0-2.7) Height (Feet): 5 Height (Inches): 6.00 Weight (Pounds): 135 Objective WDWN NAD clear breath sounds bilaterally without rhonchi or wheeze [id number] without MRG NABS nontender no HSM no CCE nonfocal sedated Vitor Dunn MD Jan 25, 2020 09:28
[2020-01-25 09:55] LABS: ANION GAP 9 mmol/L (5-15); BLOOD UREA NITROGEN 44 mg/dL (7-18); CALCIUM 8.6 MG/DL (8.5-10.1); CARBON DIOXIDE 25 MMOL/L (21-32); CHLORIDE 107 MMOL/L (98-107); CREATININE 1.1 MG/DL (0.55-1.30); SODIUM 141 MMOL/L (136-145)
[2020-01-25] MEDS: Docusate 100mg cap ORAL SCH (10:36)
[2020-01-25] MEDS: Eliquis 5mg tablet ORAL SCH ×2 (10:36→17:51)
[2020-01-25] MEDS: Doxazosin 1mg Tab ORAL SCH (10:37)
[2020-01-25 12:00] VITALS: BP 112/51
[2020-01-25] MEDS: LORazepam 1mg tab ORAL PRN (13:19)
[2020-01-25 16:00] VITALS: BP 115/50
[2020-01-25 20:00] VITALS: BP 118/53
[2020-01-25] MEDS: Lactobacillus-GG tablet ORAL SCH (20:24)
--- NOTE | 2020-01-25 23:29 | Progress Note ---
DATE: 01/26/2020 SUBJECTIVE: The patient is doing better today. More manageable. Less agitation. Compliant with care. MENTAL STATUS EXAMINATION: The patient is asleep, arousable, confused. Mood is neutral to agitation. Affect is flat. Thought process is concrete. Thought content, no suicidal or homicidal ideation. Cognition is impaired. Insight and judgment is impaired. ASSESSMENT: Schizophrenia. PLAN: 1. Continue risperidone. 2. Continue the Ativan. 3. Provide the patient with reality orientation. Jourdan Lackey M.D. DR: LOUIS JOB#: [id number] CC:
[2020-01-26] VITALS: BP 112/51
[2020-01-26 08:00] VITALS: BP 168/70
[2020-01-26] MEDS: Doxazosin 1mg Tab ORAL SCH (09:23)
[2020-01-26] MEDS: Eliquis 5mg tablet ORAL SCH ×2 (09:23→17:12)
[2020-01-26] MEDS: Docusate 100mg cap ORAL SCH (09:23)
--- NOTE | 2020-01-26 09:31 | General Progress Note ---
Assessment/Plan Assessment/Plan: ASSESSMENT agitation toxic met encephalopathy dementia CVA afib per history PLAN psych care snf meds ativan prn restrains as needed monitor as is PT urine culture and dip await improvement in agitation and then dc back to snf impression, plan, and exam edited and reviewed in detail care discussed with RN Subjective ROS Limited/Unobtainable: Yes Allergies: Coded Allergies: No Known Allergies (Unverified , 03/28/19) Subjective extremely agitated needs restraints possible urine infection not yet ready for SNF Objective Last 24 Hour Vital Signs Date Time Temp Pulse Resp B/P (MAP) Pulse Ox O2 Delivery O2 Flow Rate FiO2 01/26/20 09:22 72 168/70 01/26/20 09:22 72 168/70 01/26/20 08:00 97.4 72 18 168/70 (102) 98 01/26/20 05:26 112/51 01/26/20 00:00 98.4 65 17 112/51 (71) 98 01/25/20 20:49 Room Air 01/25/20 20:00 98.1 65 17 118/53 (74) 99 01/25/20 16:00 98.7 62 17 115/50 (71) 97 01/25/20 13:55 98.4 01/25/20 13:18 112/51 01/25/20 12:00 98.4 65 18 112/51 (71) 98 01/25/20 10:36 63 147/59 01/25/20 10:36 63 147/59 Intake and Output 01/25/20 01/26/20 19:00 07:00 # Voids 5 Height (Feet): 5 Height (Inches): 6.00 Weight (Pounds): 135 Objective WDWN NAD clear breath sounds bilaterally without rhonchi or wheeze [id number] without MRG NABS nontender no HSM no CCE nonfocal sedated Vitor Dunn MD Jan 26, 2020 09:31
[2020-01-26 12:00] VITALS: BP 127/65
[2020-01-26] MEDS: LORazepam 1mg tab ORAL PRN ×3 (12:48→22:10)
[2020-01-26 15:59] VITALS: BP 127/51
[2020-01-26 17:55] LABS: APPEARANCE,URINE CLOUDY; BILIRUBIN, URINE NEGATIVE (NEGATIVE); GLUCOSE, URINE (UA) NEGATIVE (NEGATIVE); KETONES,URINE NEGATIVE (NEGATIVE); LEUKOCYTE ESTERASE ,URINE 3+ (NEGATIVE); NITRITE,URINE POSITIVE (NEGATIVE); PH,URINE 9 (4.5-8.0); PROTEIN,URINE 2+ (NEGATIVE); UROBILINOGEN,URINE 4 MG/DL (0.0-1.0)
[2020-01-26 17:58] LABS: COLOR,URINE YELLOW
[2020-01-26 20:00] VITALS: BP_SYST 132; BP_SYST 142; BP_DIAS 51; BP_DIAS 79
[2020-01-26] MEDS: Lactobacillus-GG tablet ORAL SCH (21:02)
--- NOTE | 2020-01-26 23:08 | Psych Consult Progress Note ---
Psychiatry Progress Note Psychiatry Progress Note Medications Current Medications Medications (Trade) Dose Ordered Sig/Seng Route PRN Reason Start Time Stop Time Status Last Admin Dose Admin Acetaminophen (Tylenol) 650 mg Q4H PRN ORAL Mild Pain/Temp > 100.5 01/23/20 21:15 02/22/20 21:14 01/26/20 13:33 Al Hydroxide/Mg Hydroxide (Mylanta) 30 ml Q4H PRN ORAL Abdominal cramps 01/23/20 21:15 02/22/20 21:14 Amlodipine Besylate (Norvasc) 10 mg DAILY ORAL 01/24/20 09:00 02/23/20 08:59 01/26/20 09:22 Apixaban (Eliquis) 5 mg BID ORAL 01/24/20 09:00 04/23/20 08:59 01/26/20 17:12 Carvedilol (Coreg) 3.125 mg EVERY 12 HOURS ORAL 01/23/20 21:00 02/22/20 20:59 01/26/20 21:02 Chlorthalidone (Chlorthalidone) 25 mg DAILY ORAL 01/24/20 09:00 02/23/20 08:59 01/26/20 09:23 Clonidine HCl (Catapres Tab) 0.1 mg EVERY 8 HOURS ORAL 01/23/20 22:00 04/22/20 21:59 01/25/20 13:18 Docusate Sodium (Colace) 100 mg DAILY ORAL 01/24/20 09:00 02/23/20 08:59 01/26/20 09:23 Doxazosin Mesylate (Cardura) 4 mg DAILY ORAL 01/24/20 09:00 02/23/20 08:59 01/26/20 09:23 Lactobacillus Acidophilus (Culturelle) 1 tab BEDTIME ORAL 01/23/20 21:00 04/22/20 20:59 01/26/20 21:02 Lorazepam (Ativan) 2 mg TID PRN ORAL For Anxiety 01/24/20 12:00 01/31/20 11:59 01/26/20 22:10 Mirtazapine (Remeron) 15 mg BEDTIME ORAL 01/24/20 21:00 04/23/20 20:59 01/26/20 21:02 Nicotine (Nicoderm) 1 patch Q24H TDERMAL 01/24/20 12:00 04/23/20 11:59 01/26/20 12:48 Pantoprazole (Protonix) 40 mg DAILY ORAL 01/24/20 09:00 02/23/20 08:59 01/26/20 09:23 Risperidone (RisperDAL) 3 mg EVERY 12 HOURS ORAL 01/24/20 09:00 03/09/20 08:59 01/26/20 21:02 Neurological/Psychiatric: Reports: anxiety, depressed, emotional problems Allergies: Coded Allergies: No Known Allergies (Unverified , 03/28/19) Objective Data Height (Feet): 5 Height (Inches): 6.00 Weight (Pounds): 135 General Appearance: no apparent distress, alert, confused, agitated Perceptual Disturbances: hallucinations Mental Status Exam - Suicidal: not present Additional Comments: alert and oriented times self and place. Mood is agitated. Affect is flat. Thought process, there is a opacity of thought content. Thought content, no suicidal or homicidal ideation. Cognition is impaired. Insight and judgment impaired. ASSESSMENT: [place] I Schizophrenia. Major depressive disorder. PLAN: 1. Risperidone 3 mg twice a day. 2. Remeron 15 at bedtime. Jourdan Lackey MD Jan 26, 2020 23:08
[2020-01-27] VITALS: BP 141/51
[2020-01-27 04:02] VITALS: BP 129/62
[2020-01-27 08:00] VITALS: BP 146/56
[2020-01-27] MEDS: Docusate 100mg cap ORAL SCH (09:24)
[2020-01-27] MEDS: Doxazosin 1mg Tab ORAL SCH (09:24)
[2020-01-27] MEDS: Eliquis 5mg tablet ORAL SCH ×2 (09:25→17:10)
[2020-01-27] MEDS: LORazepam 1mg tab ORAL PRN ×3 (09:25→17:10)
--- NOTE | 2020-01-27 09:34 | General Progress Note ---
Assessment/Plan Assessment/Plan: ASSESSMENT agitation toxic met encephalopathy dementia CVA afib per history PLAN psych care and dc once cleared snf meds ativan prn restrains as needed monitor as is PT urine culture and dip pending final await improvement in agitation and then dc back to snf impression, plan, and exam edited and reviewed in detail care discussed with RN Subjective Allergies: Coded Allergies: No Known Allergies (Unverified , 03/28/19) Subjective less agitated eating breakfast possible urine infection not yet ready for SNF Objective Last 24 Hour Vital Signs Date Time Temp Pulse Resp B/P (MAP) Pulse Ox O2 Delivery O2 Flow Rate FiO2 01/27/20 09:25 58 146/56 01/27/20 09:24 58 146/56 01/27/20 09:00 Room Air 01/27/20 08:00 97.5 58 17 146/56 (86) 98 01/27/20 05:33 134/57 01/27/20 04:02 97.6 68 20 129/62 (84) 98 01/27/20 00:00 98.1 71 20 141/51 (81) 99 01/26/20 21:51 105/50 01/26/20 21:02 74 124/54 01/26/20 21:00 Room Air 01/26/20 20:00 97.7 70 19 132/51 (78) 99 01/26/20 15:59 98.0 65 17 127/51 (76) 96 01/26/20 13:57 111/52 01/26/20 12:00 98.0 63 18 127/65 (85) 98 Intake and Output 01/26/20 01/27/20 18:59 06:59 # Voids 3 2 # Bowel Movements 1 Laboratory Tests 01/26/20 16:45: Urine Color Yellow, Urine Appearance Cloudy, Urine pH 9, Urine Specific [place] 1.015, Urine Protein 2+H, Urine Glucose (UA) Negative, Urine Ketones Negative, Urine Blood 2+H, Urine Nitrite PositiveH, Urine Bilirubin Negative, Urine Urobilinogen 4H, Urine Leukocyte Esterase 3+H, Urine RBC 2-4H, Urine WBC 30-40H , Urine Squamous Epithelial Cells Occasional, Urine Bacteria ManyH Height (Feet): 5 Height (Inches): 6.00 Weight (Pounds): 138 Objective WDWN NAD clear breath sounds bilaterally without rhonchi or wheeze [id number] without MRG NABS nontender no HSM no CCE nonfocal awake Vitor Dunn MD Jan 27, 2020 09:34
[2020-01-27 12:00] VITALS: BP 140/61
[2020-01-27 16:00] VITALS: BP 102/45
[2020-01-27] MEDS ORDERED: LORazepam Inj 2mg/ml 1ml IM SCH (16:45)
[2020-01-27 20:00] VITALS: BP 127/52
[2020-01-27] MEDS: Lactobacillus-GG tablet ORAL SCH (21:19)
--- NOTE | 2020-01-27 23:18 | Psych Consult Progress Note ---
Psychiatry Progress Note Psychiatry Progress Note Subjective the pt is more manageable during the day. the pt has poor insight and is attempting to climb out of the bed Medications Current Medications Medications (Trade) Dose Ordered Sig/Seng Route PRN Reason Start Time Stop Time Status Last Admin Dose Admin Acetaminophen (Tylenol) 650 mg Q4H PRN ORAL Mild Pain/Temp > 100.5 01/23/20 21:15 02/22/20 21:14 01/26/20 13:33 Al Hydroxide/Mg Hydroxide (Mylanta) 30 ml Q4H PRN ORAL Abdominal cramps 01/23/20 21:15 02/22/20 21:14 Amlodipine Besylate (Norvasc) 10 mg DAILY ORAL 01/24/20 09:00 02/23/20 08:59 01/27/20 09:24 Apixaban (Eliquis) 5 mg BID ORAL 01/24/20 09:00 04/23/20 08:59 01/27/20 17:10 Carvedilol (Coreg) 3.125 mg EVERY 12 HOURS ORAL 01/23/20 21:00 02/22/20 20:59 01/27/20 21:20 Chlorthalidone (Chlorthalidone) 25 mg DAILY ORAL 01/24/20 09:00 02/23/20 08:59 01/27/20 09:24 Clonidine HCl (Catapres Tab) 0.1 mg EVERY 8 HOURS ORAL 01/23/20 22:00 04/22/20 21:59 01/27/20 14:23 Docusate Sodium (Colace) 100 mg DAILY ORAL 01/24/20 09:00 02/23/20 08:59 01/27/20 09:24 Doxazosin Mesylate (Cardura) 4 mg DAILY ORAL 01/24/20 09:00 02/23/20 08:59 01/27/20 09:24 Lactobacillus Acidophilus (Culturelle) 1 tab BEDTIME ORAL 01/23/20 21:00 04/22/20 20:59 01/27/20 21:19 Lorazepam (Ativan) 2 mg TID PRN ORAL For Anxiety 01/24/20 12:00 01/31/20 11:59 01/27/20 17:10 Mirtazapine (Remeron) 15 mg BEDTIME ORAL 01/24/20 21:00 04/23/20 20:59 01/27/20 21:21 Nicotine (Nicoderm) 1 patch Q24H TDERMAL 01/24/20 12:00 04/23/20 11:59 01/27/20 12:17 Pantoprazole (Protonix) 40 mg DAILY ORAL 01/24/20 09:00 02/23/20 08:59 01/27/20 09:25 Risperidone (RisperDAL) 3 mg EVERY 12 HOURS ORAL 01/24/20 09:00 03/09/20 08:59 01/27/20 21:21 Neurological/Psychiatric: Reports: anxiety, depressed, emotional problems Allergies: Coded Allergies: No Known Allergies (Unverified , 03/28/19) Objective Data Height (Feet): 5 Height (Inches): 6.00 Weight (Pounds): 138 Appearance: no abnormalities noted Behavior Mannerisms: good eye contact Mental Status Exam - Affect: blunted Speech: clear Mental Status Exam - Thought P: tangential, confusion, disorganized Additional Comments: alert and oriented times self and place. Mood is agitated. Affect is flat. Thought process, there is a opacity of thought content. Thought content, no suicidal or homicidal ideation. Cognition is impaired. Insight and judgment impaired. Assessment/Plan Assessment/Plan: ASSESSMENT: [place] I Schizophrenia. Major depressive disorder. PLAN: 1. Risperidone 3 mg twice a day. 2. Remeron 15 at bedtime. Jourdan Lackey MD Jan 27, 2020 23:18
[2020-01-28] VITALS (7 sets, daily range): BP systolic 99–157; BP diastolic 44–71
--- NOTE | 2020-01-28 09:02 | General Progress Note ---
Assessment/Plan Assessment/Plan: ASSESSMENT agitation toxic met encephalopathy dementia CVA afib per history PLAN psych care and intervention snf meds ativan prn restraints as needed monitor for change and check urine culture PT urine culture and dip pending final await improvement in agitation and then dc back to snf impression, plan, and exam edited and reviewed in detail care discussed with RN Subjective Allergies: Coded Allergies: No Known Allergies (Unverified , 03/28/19) Subjective less agitated possible urine infection not yet ready for SNF Objective Last 24 Hour Vital Signs Date Time Temp Pulse Resp B/P (MAP) Pulse Ox O2 Delivery O2 Flow Rate FiO2 01/28/20 05:08 151/58 01/28/20 04:00 97.9 64 20 151/58 (89) 99 01/28/20 00:00 98.6 75 20 131/56 (81) 99 01/27/20 22:52 112/58 01/27/20 21:20 75 127/52 01/27/20 21:00 Room Air 01/27/20 20:00 98.6 75 20 127/52 (77) 100 01/27/20 16:00 97.6 88 17 102/45 (64) 100 01/27/20 14:23 140/61 01/27/20 12:00 97.7 62 16 140/61 (87) 100 01/27/20 09:25 58 146/56 01/27/20 09:24 58 146/56 Intake and Output 01/27/20 01/28/20 19:00 07:00 Intake Total 500 ml 260 ml Balance 500 ml 260 ml Intake Oral 500 ml 260 ml # Voids 3 3 Height (Feet): 5 Height (Inches): 6.00 Weight (Pounds): 138 Objective WDWN NAD clear breath sounds bilaterally without rhonchi or wheeze [id number] without MRG NABS nontender no HSM no CCE nonfocal awake Vitor Dunn MD Jan 28, 2020 09:02
[2020-01-28] MEDS: Doxazosin 1mg Tab ORAL SCH (09:37)
[2020-01-28] MEDS: Docusate 100mg cap ORAL SCH (09:38)
[2020-01-28] MEDS: Eliquis 5mg tablet ORAL SCH ×2 (09:38→18:07)
[2020-01-28] MEDS: LORazepam 1mg tab ORAL PRN (13:14)
--- NOTE | 2020-01-28 19:15 | Psych Consult Progress Note ---
Psychiatry Progress Note Psychiatry Progress Note Subjective the pt is yelling to smoke Medications Current Medications Medications (Trade) Dose Ordered Sig/Seng Route PRN Reason Start Time Stop Time Status Last Admin Dose Admin Acetaminophen (Tylenol) 650 mg Q4H PRN ORAL Mild Pain/Temp > 100.5 01/23/20 21:15 02/22/20 21:14 01/26/20 13:33 Al Hydroxide/Mg Hydroxide (Mylanta) 30 ml Q4H PRN ORAL Abdominal cramps 01/23/20 21:15 02/22/20 21:14 Amlodipine Besylate (Norvasc) 10 mg DAILY ORAL 01/24/20 09:00 02/23/20 08:59 01/28/20 09:37 Apixaban (Eliquis) 5 mg BID ORAL 01/24/20 09:00 04/23/20 08:59 01/28/20 18:07 Carvedilol (Coreg) 3.125 mg EVERY 12 HOURS ORAL 01/23/20 21:00 02/22/20 20:59 01/28/20 09:37 Chlorthalidone (Chlorthalidone) 25 mg DAILY ORAL 01/24/20 09:00 02/23/20 08:59 01/28/20 09:37 Clonidine HCl (Catapres Tab) 0.1 mg EVERY 8 HOURS ORAL 01/23/20 22:00 04/22/20 21:59 01/28/20 13:14 Docusate Sodium (Colace) 100 mg DAILY ORAL 01/24/20 09:00 02/23/20 08:59 01/28/20 09:38 Doxazosin Mesylate (Cardura) 4 mg DAILY ORAL 01/24/20 09:00 02/23/20 08:59 01/28/20 09:37 Lactobacillus Acidophilus (Culturelle) 1 tab BEDTIME ORAL 01/23/20 21:00 04/22/20 20:59 01/27/20 21:19 Lorazepam (Ativan) 2 mg TID PRN ORAL For Anxiety 01/24/20 12:00 01/31/20 11:59 01/28/20 13:14 Mirtazapine (Remeron) 15 mg BEDTIME ORAL 01/24/20 21:00 04/23/20 20:59 01/27/20 21:21 Nicotine (Nicoderm) 1 patch Q24H TDERMAL 01/24/20 12:00 04/23/20 11:59 01/28/20 12:32 Pantoprazole (Protonix) 40 mg DAILY ORAL 01/24/20 09:00 02/23/20 08:59 01/28/20 09:38 Risperidone (RisperDAL) 3 mg EVERY 12 HOURS ORAL 01/24/20 09:00 03/09/20 08:59 01/28/20 09:36 Neurological/Psychiatric: Reports: anxiety, depressed, emotional problems Allergies: Coded Allergies: No Known Allergies (Unverified , 03/28/19) Objective Data Height (Feet): 5 Height (Inches): 6.00 Weight (Pounds): 138 Appearance: no abnormalities noted Behavior Mannerisms: good eye contact Mental Status Exam - Affect: blunted Mental Status Exam - Mood: no abnormalities Mental Status Exam - Thought P: tangential, confusion, disorganized Perceptual Disturbances: hallucinations Mental Status Exam - Suicidal: not present Assessment/Plan [place] I: ASSESSMENT: [place] I Schizophrenia. Major depressive disorder. Assessment/Plan: PLAN: 1. Risperidone 3 mg twice a day. 2. Remeron 15 at bedtime. 3. dc restraints. Jourdan Lackey MD Jan 28, 2020 19:15
[2020-01-28] MEDS: Lactobacillus-GG tablet ORAL SCH (20:54)
[2020-01-29 04:00] VITALS: BP 121/51
[2020-01-29 07:16] LABS: ALANINE AMINOTRANSFERASE 71 U/L (12-78); ALBUMIN 2.5 G/DL (3.4-5.0); ALBUMIN/GLOBULIN RATIO 0.7 (1.0-2.7); ALKALINE PHOSPHATASE 94 U/L (46-116); ANION GAP 12 mmol/L (5-15); ASPARTATE AMINO TRANSFERASE 58 U/L (15-37); BILIRUBIN,TOTAL 0.3 MG/DL (0.2-1.0); BLOOD UREA NITROGEN 29 mg/dL (7-18); CALCIUM 8.8 MG/DL (8.5-10.1); CARBON DIOXIDE 21 MMOL/L (21-32); CHLORIDE 111 MMOL/L (98-107); CREATININE 0.9 MG/DL (0.55-1.30); POTASSIUM 3.9 MMOL/L (3.5-5.1); SODIUM 144 MMOL/L (136-145)
[2020-01-29 07:26] LABS: HEMATOCRIT 29.6 % (37.0-47.0); HEMOGLOBIN 10.3 G/DL (12.0-16.0); MEAN CORPUSCULAR VOLUME 91 FL (80-99); PLATELET COUNT 175 K/UL (150-450); RED BLOOD COUNT 3.26 M/UL (4.20-5.40); RED CELL DISTRIBUTION WIDTH 12.2 % (11.6-14.8); WHITE BLOOD COUNT 4.4 K/UL (4.8-10.8)
[2020-01-29 08:00] VITALS: BP 134/52
[2020-01-29] MEDS ORDERED: Bactrim-DS 1 tab ORAL SCH ×2 (09:00→21:00)
[2020-01-29] MEDS: Doxazosin 1mg Tab ORAL SCH (09:25)
[2020-01-29] MEDS: Docusate 100mg cap ORAL SCH (09:26)
[2020-01-29] MEDS: Eliquis 5mg tablet ORAL SCH ×2 (09:26→17:34)
[2020-01-29] MEDS: LORazepam 1mg tab ORAL PRN (11:36)
[2020-01-29 12:00] VITALS: BP_SYST 116; BP_SYST 150; BP_DIAS 57; BP_DIAS 85
--- NOTE | 2020-01-29 13:50 | General Progress Note ---
Assessment/Plan Assessment/Plan: ASSESSMENT agitation toxic met encephalopathy dementia CVA afib per history UTI PLAN psych care and intervention snf meds ativan prn restraints as needed monitor for change and check urine culture PT started on antibiotics await improvement in agitation and then dc back to snf impression, plan, and exam edited and reviewed in detail care discussed with RN Subjective Allergies: Coded Allergies: No Known Allergies (Unverified , 03/28/19) Subjective less agitated positive urine infection not yet ready for SNF Objective Last 24 Hour Vital Signs Date Time Temp Pulse Resp B/P (MAP) Pulse Ox O2 Delivery O2 Flow Rate FiO2 01/29/20 13:27 116/57 01/29/20 12:00 97.6 65 18 116/57 (76) 100 01/29/20 09:26 87 134/52 01/29/20 09:26 87 134/52 01/29/20 09:00 Room Air 01/29/20 08:00 97.2 87 18 134/52 (79) 100 01/29/20 05:48 121/51 01/29/20 04:00 98.5 63 18 121/51 (74) 98 01/28/20 23:11 98.1 62 18 99/44 (62) 97 01/28/20 23:11 99/44 01/28/20 21:00 Room Air 01/28/20 20:54 62 129/54 01/28/20 20:00 98.0 62 18 129/54 (79) 98 01/28/20 16:00 97.5 71 18 128/49 (75) 100 Intake and Output 01/28/20 01/29/20 19:00 07:00 Intake Total 860 ml 720 ml Output Total 1000 ml Balance -140 ml 720 ml Intake Oral 860 ml 720 ml Output Urine Total 1000 ml # Voids 4 # Bowel Movements 1 Laboratory Tests 01/29/20 05:20: White Blood Count 4.4L, Red Blood Count 3.26L, Hemoglobin 10.3L, Hematocrit 29.6L, Mean Corpuscular Volume 91, Mean Corpuscular Hemoglobin 31.7H, Mean Corpuscular Hemoglobin Concent 34.8, Red Cell Distribution Width 12.2, Platelet Count 175, Mean Platelet Volume 6.2L, Neutrophils (%) (Auto) , Lymphocytes (%) ( Auto) , Monocytes (%) (Auto) , Eosinophils (%) (Auto) , Basophils (%) (Auto) , Differential Total Cells Counted 100, Neutrophils % (Manual) 22L, Lymphocytes % (Manual) 63H, Monocytes % (Manual) 12H, Eosinophils % (Manual) 3, Basophils % ( Manual) 0, Band Neutrophils 0, Platelet Estimate Adequate, Platelet Morphology Normal, Sodium Level 144, Potassium Level 3.9, Chloride Level 111H, Carbon Dioxide Level 21, Anion Gap 12, Blood Urea Nitrogen 29H, Creatinine 0.9, Estimat Glomerular Filtration Rate > 60, Glucose Level 113H, Calcium Level 8.8, Total Bilirubin 0.3, Aspartate Amino Transf (AST/SGOT) 58H, Alanine Aminotransferase (ALT/SGPT) 71, Alkaline Phosphatase 94, Total Protein 6.1L, Albumin 2.5L, Globulin 3.6, Albumin/Globulin Ratio 0.7L Height (Feet): 5 Height (Inches): 6.00 Weight (Pounds): 138 Objective WDWN NAD clear breath sounds bilaterally without rhonchi or wheeze [id number] without MRG NABS nontender no HSM no CCE nonfocal awake Vitor Dunn MD Jan 29, 2020 13:50
[2020-01-29 16:00] VITALS: BP 139/59
--- NOTE | 2020-01-29 19:24 | Consultation ---
History of Present Illness General Date patient seen: Jan 29, 2020 Reason for Hospitalization: Behavioral Complaint Present Illness HPI 70 year old female detention resident recently admitted for agitation / confusion / combative. on admission noted to have decubitus skin ulcer, abnormal labs, and complaining of abd pain today. surgery called to evaluate and assist with care. patient seen, chart reviewed, patient examined. she is calm today without agitation during evaluation. states she has abdominal cramping. mild nausea. no emesis. has been eating well. cannot recall last BM . cramping pain 02/04, without radiation. Allergies: Coded Allergies: No Known Allergies (Unverified , 03/28/19) COVID-19 Screening Contact w/high risk pt: No Recent Travel to affected area: No Experienced COVID-19 symptoms?: No Medication History Scheduled Clonidine Hcl* (Catapres*), 0.1 MG ORAL EVERY 8 HOURS, (Reported) Docusate Sodium* (Colace*), 100 MG ORAL DAILY, (Reported) Doxazosin Mesylate* (Doxazosin Mesylate*), 4 MG ORAL DAILY, (Reported) Magnesium Hydroxide* (Milk Of Magnesia*), 30 ML ORAL DAILY, (Reported) Risperidone* (Risperdal*), 3 MG ORAL EVERY 12 HOURS, (Reported) Valsartan (Diovan), 320 MG ORAL DAILY, (Reported) Scheduled PRN Acetaminophen* (Tylenol Extra Strength*), 1,000 MG ORAL Q6H PRN for Moderate Pain (Pain Scale 4-6), (Reported) Acetaminophen* (Acetaminophen 325MG Tablet*), 650 MG ORAL Q6H PRN for Mild Pain (Pain Scale 1-3), (Reported) Acetaminophen* (Acetaminophen 325MG Tablet*), 650 MG ORAL Q4H PRN for Pain Scale (3-5), (Reported) Discontinued Medications Aspirin* (Aspir 81*), 81 MG ORAL DAILY, (Reported) Discontinued Reason: MD discontinued med Atorvastatin Calcium* (Lipitor*), 10 MG ORAL BEDTIME, (Reported) Discontinued Reason: MD discontinued med Bisacodyl (Dulcolax), 10 MG RC, (Reported) Discontinued Reason: MD discontinued med Clopidogrel* (Clopidogrel*), 75 MG ORAL DAILY, (Reported) Discontinued Reason: MD discontinued med Divalproex Sodium* (Depakote*), 750 MG ORAL BEDTIME Discontinued Reason: MD discontinued med Docusate Sodium* (Colace*), 100 MG ORAL DAILY, (Reported) Discontinued Reason: MD discontinued med Donepezil Hcl* (Donepezil Hcl*), 5 MG ORAL DAILY, (Reported) Discontinued Reason: MD discontinued med Escitalopram Oxalate* (Lexapro*), 20 MG ORAL DAILY, (Reported) Discontinued Reason: MD discontinued med Escitalopram Oxalate* (Lexapro*), 20 MG ORAL DAILY Discontinued Reason: MD discontinued med Furosemide* (Lasix*), 20 MG ORAL DAILY, (Reported) Discontinued Reason: MD discontinued med Labetalol HCl (Labetalol HCl), 300 MG ORAL Q12HR Discontinued Reason: Medication dose changed Lactobacillus Acidophilus (Acidophilus Lactobacillus), 1 GM MC, (Reported) Discontinued Reason: Medication dose changed Latanoprost/Pf (Latanoprost 0.005% Eye Drop), 1 DROP BOTH EYES HS, (Reported) Discontinued Reason: MD discontinued med Levetiracetam (Keppra), 750 MG ORAL Q12HR Discontinued Reason: MD discontinued med Loratadine (Loratadine), 10 MG PO, (Reported) Discontinued Reason: MD discontinued med Lorazepam* (Ativan*), 2 MG ORAL Q6HR PRN for For Anxiety, (Reported) Discontinued Reason: MD discontinued med Lorazepam* (Ativan*), 2 MG ORAL Q6H PRN Discontinued Reason: MD discontinued med Metoprolol Succinate* (Metoprolol Succinate*), 25 MG ORAL DAILY, (Reported) Discontinued Reason: MD discontinued med Mirtazapine* (Mirtazapine*), 7.5 MG ORAL BEDTIME Discontinued Reason: MD discontinued med Na Phos,M-B/Na Phos,Di-Ba* (Fleet Enema*), 133 ML RECTAL EVERY OTHER DAY PRN for Constipation, (Reported) Discontinued Reason: MD discontinued med Ondansetron* (Zofran*), 4 MG ORAL Q6H PRN for Nausea & Vomiting, (Reported) Discontinued Reason: MD discontinued med Potassium Chloride* (K-Dur*), 20 MEQ ORAL DAILY, (Reported) Discontinued Reason: MD discontinued med Quetiapine Fumarate* (Seroquel*), 50 MG ORAL Q6H PRN Discontinued Reason: MD discontinued med Risperidone* (Risperdal*), 1 MG ORAL BID Discontinued Reason: MD discontinued med Vitamin D (Vitamin D3), 2,000 UNITS ORAL DAILY, (Reported) Discontinued Reason: MD discontinued med Zinc Sulfate (Zinc Sulfate*), 220 MG ORAL DAILY, (Reported) Discontinued Reason: MD discontinued med Patient History Limited by: medical condition, other History Provided By: Patient, Medical Record, PMD Healthcare decision maker Cherry Carrillo Resuscitation status Full Code Advanced Directive on File No Past Medical/Surgical History Past Medical/Surgical History: (1) Abdominal pain (2) Epileptic seizure, generalized (3) Dehydration (4) Encephalopathy Review of Systems Review of Symptoms General ROS: no weight loss or fever Psychological ROS: no depression or mood changes, no memory loss Ophthalmic ROS: no visual changes or eye irritation ENT ROS: no nasal congestion, hearing loss, dizziness Allergy and Immunology ROS: no allergic symptoms or urticaria Hematological and Lymphatic ROS: no swollen glands, unusual bleeding or bruising Endocrine ROS: no polyuria, polydipsia, weight changes, temperature intolerance Respiratory ROS: no cough, shortness of breath, or wheezing Cardiovascular ROS: no chest pain or dyspnea on exertion Gastrointestinal ROS: abdominal pain, bright red blood in stool. Musculoskeletal ROS: no myalgias or arthralgias Neurological ROS: no TIA or stroke symptoms Dermatological ROS: no new or changing skin lesions, rashes or pruritis Physical Exam Physical Exam General appearance: alert, cooperative, no distress, appears stated age Head: Normocephalic, without obvious abnormality, atraumatic Eyes: conjunctivae/corneas clear. PERRL, EOM's intact. Fundi benign Throat: Lips, mucosa, and tongue normal. Teeth and gums normal Neck: supple, symmetrical, trachea midline, no adenopathy, thyroid: not enlarged, symmetric, no tenderness/mass/nodules, no carotid bruit and no JVD Lungs: clear to auscultation bilaterally Heart: regular rate and rhythm, S1, S2 normal, no murmur, click, rub or gallop Abdomen: soft, non-tender. Bowel sounds normal. No masses, no organomegaly Extremities: extremities normal, atraumatic, no cyanosis or edema Pulses: 2+ and symmetric Skin: Skin color, texture, turgor normal. No rashes or lesions Neurologic: Grossly normal Last 24 Hour Vital Signs Date Time Temp Pulse Resp B/P (MAP) Pulse Ox O2 Delivery O2 Flow Rate FiO2 4/3/20 18:05 98.1 01/29/20 16:00 98.1 61 18 139/59 (85) 98 01/29/20 13:27 116/57 01/29/20 12:00 97.6 65 18 116/57 (76) 100 01/29/20 09:26 87 134/52 01/29/20 09:26 87 134/52 01/29/20 09:00 Room Air 01/29/20 08:00 97.2 87 18 134/52 (79) 100 01/29/20 05:48 121/51 01/29/20 04:00 98.5 63 18 121/51 (74) 98 01/28/20 23:11 98.1 62 18 99/44 (62) 97 01/28/20 23:11 99/44 01/28/20 21:00 Room Air 01/28/20 20:54 62 129/54 01/28/20 20:00 98.0 62 18 129/54 (79) 98 Intake and Output 01/28/20 01/29/20 19:00 07:00 Intake Total 860 ml 720 ml Output Total 1000 ml Balance -140 ml 720 ml Intake Oral 860 ml 720 ml Output Urine Total 1000 ml # Voids 4 # Bowel Movements 1 Laboratory Tests Test 01/29/20 05:20 White Blood Count 4.4 K/UL (4.8-10.8) L Red Blood Count 3.26 M/UL (4.20-5.40) L Hemoglobin 10.3 G/DL (12.0-16.0) L Hematocrit 29.6 % (37.0-47.0) L Mean Corpuscular Volume 91 FL (80-99) Mean Corpuscular Hemoglobin 31.7 PG (27.0-31.0) H Mean Corpuscular Hemoglobin Concent 34.8 G/DL (32.0-36.0) Red Cell Distribution Width 12.2 % (11.6-14.8) Platelet Count 175 K/UL (150-450) Mean Platelet Volume 6.2 FL (6.5-10.1) L Neutrophils (%) (Auto) % (45.0-75.0) Lymphocytes (%) (Auto) % (20.0-45.0) Monocytes (%) (Auto) % (1.0-10.0) Eosinophils (%) (Auto) % (0.0-3.0) Basophils (%) (Auto) % (0.0-2.0) Differential Total Cells Counted 100 Neutrophils % (Manual) 22 % (45-75) L Lymphocytes % (Manual) 63 % (20-45) H Monocytes % (Manual) 12 % (1-10) H Eosinophils % (Manual) 3 % (0-3) Basophils % (Manual) 0 % (0-2) Band Neutrophils 0 % (0-8) Platelet Estimate Adequate Platelet Morphology Normal Sodium Level 144 MMOL/L (136-145) Potassium Level 3.9 MMOL/L (3.5-5.1) Chloride Level 111 MMOL/L (98-107) H Carbon Dioxide Level 21 MMOL/L (21-32) Anion Gap 12 mmol/L (5-15) Blood Urea Nitrogen 29 mg/dL (7-18) H Creatinine 0.9 MG/DL (0.55-1.30) Estimat Glomerular Filtration Rate > 60 mL/min (>60) Glucose Level 113 MG/DL (74-106) H Calcium Level 8.8 MG/DL (8.5-10.1) Total Bilirubin 0.3 MG/DL (0.2-1.0) Aspartate Amino Transf (AST/SGOT) 58 U/L (15-37) H Alanine Aminotransferase (ALT/SGPT) 71 U/L (12-78) Alkaline Phosphatase 94 U/L (46-116) Total Protein 6.1 G/DL (6.4-8.2) L Albumin 2.5 G/DL (3.4-5.0) L Globulin 3.6 g/dL Albumin/Globulin Ratio 0.7 (1.0-2.7) L Height (Feet): 5 Height (Inches): 6.00 Weight (Pounds): 138 Medications Current Medications Medications (Trade) Dose Ordered Sig/Seng Route PRN Reason Start Time Stop Time Status Last Admin Dose Admin Acetaminophen (Tylenol) 650 mg Q4H PRN ORAL Mild Pain/Temp > 100.5 01/23/20 21:15 02/22/20 21:14 01/29/20 17:35 Al Hydroxide/Mg Hydroxide (Mylanta) 30 ml Q4H PRN ORAL Abdominal cramps 01/23/20 21:15 02/22/20 21:14 Amlodipine Besylate (Norvasc) 10 mg DAILY ORAL 01/24/20 09:00 02/23/20 08:59 01/29/20 09:26 Apixaban (Eliquis) 5 mg BID ORAL 01/24/20 09:00 04/23/20 08:59 01/29/20 17:34 Carvedilol (Coreg) 3.125 mg EVERY 12 HOURS ORAL 01/23/20 21:00 02/22/20 20:59 01/29/20 09:26 Chlorthalidone (Chlorthalidone) 25 mg DAILY ORAL 01/24/20 09:00 02/23/20 08:59 01/29/20 09:25 Clonidine HCl (Catapres Tab) 0.1 mg EVERY 8 HOURS ORAL 01/23/20 22:00 04/22/20 21:59 01/29/20 13:27 Docusate Sodium (Colace) 100 mg DAILY ORAL 01/24/20 09:00 02/23/20 08:59 01/29/20 09:26 Doxazosin Mesylate (Cardura) 4 mg DAILY ORAL 01/24/20 09:00 02/23/20 08:59 01/29/20 09:25 Lactobacillus Acidophilus (Culturelle) 1 tab BEDTIME ORAL 01/23/20 21:00 04/22/20 20:59 01/28/20 20:54 Lorazepam (Ativan) 2 mg TID PRN ORAL For Anxiety 01/24/20 12:00 01/31/20 11:59 01/29/20 11:36 Mirtazapine (Remeron) 15 mg BEDTIME ORAL 01/24/20 21:00 04/23/20 20:59 01/28/20 20:54 Nicotine (Nicoderm) 1 patch Q24H TDERMAL 01/24/20 12:00 04/23/20 11:59 01/29/20 12:18 Pantoprazole (Protonix) 40 mg DAILY ORAL 01/24/20 09:00 02/23/20 08:59 01/29/20 09:26 Risperidone (RisperDAL) 3 mg EVERY 12 HOURS ORAL 01/24/20 09:00 03/09/20 08:59 01/29/20 09:26 Trimethoprim/ Sulfamethoxazole (Bactrim-DS) 1 tab Q12HR ORAL 01/29/20 21:00 02/05/20 08:59 Assessment/Plan Problem List: (1) Decubitus skin ulcer Assessment & Plan: Pt presented on admission with multiple skin breakdown. Non-blanching erythema without induration or fluctuance Sacrum, R and L gluteal cheeks. Pt. complained of tenderness when minimally palpated. DTPI noted to L heel extending into plantar aspect (L)3.3cm x (W)8cm.Base of injury presents as an intact blood filled blister.Pt complained of tenderness when palpated. DTPI R heel(L)4cm x (W)6cm. Base of injury is fluctuant and maroon. Pt also complained of pain when minimally palpated. NO other areas of skin breakdown noted. Tx.Plan: Apply Moisture Barrier Paste to Sacrum. Cover with Optifoam Drsg. Change every 3 days and prn. Apply Cavilon Skin Barrier to both heels. Cover each heel with Optifoam drsg. Change every 7 days and prn. Reposition at least every 2hours or as tolerated. Off-load heels with pillow. APM/YONY Mattress. ICD Codes: L89.90 - Pressure ulcer of unspecified site, unspecified stage SNOMED: 178238465 (2) Abdominal pain Assessment & Plan: cramping abdominal pain onset 1-2 days nausea no emesis labs noted KUB ordered cont diet zofran prn will follow with serial exams no surgical intervention planned at this time ICD Codes: R10.9 - Unspecified abdominal pain SNOMED: 64235618 Srinivas Macias Jan 29, 2020 19:24
[2020-01-29 20:00] VITALS: BP 102/51
[2020-01-29] MEDS: Lactobacillus-GG tablet ORAL SCH (21:32)
--- NOTE | 2020-01-29 21:39 | Psych Consult Progress Note ---
Psychiatry Progress Note Psychiatry Progress Note Medications Current Medications Medications (Trade) Dose Ordered Sig/Seng Route PRN Reason Start Time Stop Time Status Last Admin Dose Admin Acetaminophen (Tylenol) 650 mg Q4H PRN ORAL Mild Pain/Temp > 100.5 01/23/20 21:15 02/22/20 21:14 01/29/20 17:35 Al Hydroxide/Mg Hydroxide (Mylanta) 30 ml Q4H PRN ORAL Abdominal cramps 01/23/20 21:15 02/22/20 21:14 Amlodipine Besylate (Norvasc) 10 mg DAILY ORAL 01/24/20 09:00 02/23/20 08:59 01/29/20 09:26 Apixaban (Eliquis) 5 mg BID ORAL 01/24/20 09:00 04/23/20 08:59 01/29/20 17:34 Carvedilol (Coreg) 3.125 mg EVERY 12 HOURS ORAL 01/23/20 21:00 02/22/20 20:59 01/29/20 21:31 Chlorthalidone (Chlorthalidone) 25 mg DAILY ORAL 01/24/20 09:00 02/23/20 08:59 01/29/20 09:25 Clonidine HCl (Catapres Tab) 0.1 mg EVERY 8 HOURS ORAL 01/23/20 22:00 04/22/20 21:59 01/29/20 13:27 Docusate Sodium (Colace) 100 mg DAILY ORAL 01/24/20 09:00 02/23/20 08:59 01/29/20 09:26 Doxazosin Mesylate (Cardura) 4 mg DAILY ORAL 01/24/20 09:00 02/23/20 08:59 01/29/20 09:25 Lactobacillus Acidophilus (Culturelle) 1 tab BEDTIME ORAL 01/23/20 21:00 04/22/20 20:59 01/29/20 21:32 Lorazepam (Ativan) 2 mg TID PRN ORAL For Anxiety 01/24/20 12:00 01/31/20 11:59 01/29/20 11:36 Mirtazapine (Remeron) 15 mg BEDTIME ORAL 01/24/20 21:00 04/23/20 20:59 01/29/20 21:32 Nicotine (Nicoderm) 1 patch Q24H TDERMAL 01/24/20 12:00 04/23/20 11:59 01/29/20 12:18 Pantoprazole (Protonix) 40 mg DAILY ORAL 01/24/20 09:00 02/23/20 08:59 01/29/20 09:26 Risperidone (RisperDAL) 3 mg EVERY 12 HOURS ORAL 01/24/20 09:00 03/09/20 08:59 01/29/20 21:32 Trimethoprim/ Sulfamethoxazole (Bactrim-DS) 1 tab Q12HR ORAL 01/29/20 21:00 02/05/20 08:59 01/29/20 21:32 Allergies: Coded Allergies: No Known Allergies (Unverified , 03/28/19) Objective Data Height (Feet): 5 Height (Inches): 6.00 Weight (Pounds): 138 Assessment/Plan Assessment/Plan: PLAN: 1. Risperidone 3 mg twice a day. 2. Remeron 15 at bedtime. 3. dc restraints. Jourdan Lackey MD Jan 29, 2020 21:39
[2020-01-30] VITALS (8 sets, daily range): BP systolic 98–153; BP diastolic 48–76
[2020-01-30] MEDS: LORazepam 1mg tab ORAL PRN ×2 (00:24→22:34)
[2020-01-30 07:42] LABS: HEMATOCRIT 29.4 % (37.0-47.0); HEMOGLOBIN 10.2 G/DL (12.0-16.0); MEAN CORPUSCULAR VOLUME 91 FL (80-99); PLATELET COUNT 163 K/UL (150-450); RED BLOOD COUNT 3.21 M/UL (4.20-5.40); RED CELL DISTRIBUTION WIDTH 12.3 % (11.6-14.8); WHITE BLOOD COUNT 3.8 K/UL (4.8-10.8)
[2020-01-30 07:53] LABS: ALANINE AMINOTRANSFERASE 66 U/L (12-78); ALBUMIN 2.5 G/DL (3.4-5.0); ALBUMIN/GLOBULIN RATIO 0.8 (1.0-2.7); ALKALINE PHOSPHATASE 94 U/L (46-116); ANION GAP 10 mmol/L (5-15); ASPARTATE AMINO TRANSFERASE 79 U/L (15-37); BILIRUBIN,TOTAL 0.2 MG/DL (0.2-1.0); BLOOD UREA NITROGEN 43 mg/dL (7-18); CALCIUM 8.6 MG/DL (8.5-10.1); CARBON DIOXIDE 24 MMOL/L (21-32); CHLORIDE 108 MMOL/L (98-107); CREATININE 1.8 MG/DL (0.55-1.30); POTASSIUM 3.9 MMOL/L (3.5-5.1); SODIUM 141 MMOL/L (136-145)
[2020-01-30] MEDS: Doxazosin 1mg Tab ORAL SCH (09:00)
--- NOTE | 2020-01-30 10:13 | Diagnostic Imaging Report ---
EXAM: XR Abdomen CLINICAL HISTORY: Followup. TECHNIQUE: Frontal view of the abdomen/pelvis. COMPARISON: No prior studies available for direct comparison. FINDINGS: There is fecal and gaseous distention of colon. Mottled appearance of the right colon. Mildly prominent small bowel loops. Suboptimal evaluation for free air on this supine radiograph. No suspicious calcifications. Degenerative changes in thoracic spine. Partially visualized pacemaker leads. IMPRESSION: Mottled appearance of the right colon may be due to admixture of fecal material and bowel gas. Pneumatosis cannot be definitively excluded. Borderline prominent small bowel loops. Suboptimal evaluation for free air on this supine radiograph. <MYCVCSECTION> Communications: 01/30/20 10:16 Call Nurse Called NATASHA Arias on 01/29 10:16 (-07:00)
[2020-01-30] MEDS: Docusate 100mg cap ORAL SCH (10:32)
[2020-01-30] MEDS: Eliquis 5mg tablet ORAL SCH ×2 (10:32→18:48)
[2020-01-30] MEDS: Bactrim SS Tab ORAL SCH ×2 (10:33→21:04)
--- NOTE | 2020-01-30 14:58 | Surgery Progress Note ---
Surgery Progress Note Subjective Additional Comments no acute events exam stable pain okay coryb noted likely constipate Objective Last 24 Hour Vital Signs Date Time Temp Pulse Resp B/P (MAP) Pulse Ox O2 Delivery O2 Flow Rate FiO2 01/30/20 14:33 65 136/76 (96) 01/30/20 14:33 136/76 01/30/20 12:00 97.7 55 18 117/57 (77) 98 01/30/20 09:55 60 119/48 (71) 01/30/20 09:00 Room Air 01/30/20 09:00 60 119/48 01/30/20 09:00 60 119/48 01/30/20 08:00 98.9 56 19 98/54 (69) 99 01/30/20 06:39 129/59 01/30/20 04:00 98.1 61 18 129/59 (82) 98 01/30/20 00:00 98.6 65 18 121/53 (75) 98 01/29/20 22:00 112/54 01/29/20 21:31 65 114/51 01/29/20 21:00 Room Air 01/29/20 20:00 98.2 62 18 102/51 (68) 97 01/29/20 18:05 98.1 01/29/20 16:00 98.1 61 18 139/59 (85) 98 I&O Intake and Output 01/29/20 01/30/20 19:00 07:00 Intake Total 1280 ml Balance 1280 ml Intake Oral 480 ml Other 800 ml # Voids 2 Cardiovascular: RSR Respiratory: clear Abdomen: soft, non-tender, present bowel sounds Extremities: no tenderness, no cyanosis Laboratory Tests Test 01/30/20 05:34 White Blood Count 3.8 K/UL (4.8-10.8) L Red Blood Count 3.21 M/UL (4.20-5.40) L Hemoglobin 10.2 G/DL (12.0-16.0) L Hematocrit 29.4 % (37.0-47.0) L Mean Corpuscular Volume 91 FL (80-99) Mean Corpuscular Hemoglobin 31.6 PG (27.0-31.0) H Mean Corpuscular Hemoglobin Concent 34.6 G/DL (32.0-36.0) Red Cell Distribution Width 12.3 % (11.6-14.8) Platelet Count 163 K/UL (150-450) Mean Platelet Volume 6.5 FL (6.5-10.1) Neutrophils (%) (Auto) % (45.0-75.0) Lymphocytes (%) (Auto) % (20.0-45.0) Monocytes (%) (Auto) % (1.0-10.0) Eosinophils (%) (Auto) % (0.0-3.0) Basophils (%) (Auto) % (0.0-2.0) Differential Total Cells Counted 100 Neutrophils % (Manual) 39 % (45-75) L Lymphocytes % (Manual) 46 % (20-45) H Monocytes % (Manual) 12 % (1-10) H Eosinophils % (Manual) 3 % (0-3) Basophils % (Manual) 0 % (0-2) Band Neutrophils 0 % (0-8) Platelet Estimate Adequate Platelet Morphology Normal Hypochromasia 1+ Erythrocyte Sedimentation Rate 38 MM/HR (0-30) H Sodium Level 141 MMOL/L (136-145) Potassium Level 3.9 MMOL/L (3.5-5.1) Chloride Level 108 MMOL/L (98-107) H Carbon Dioxide Level 24 MMOL/L (21-32) Anion Gap 10 mmol/L (5-15) Blood Urea Nitrogen 43 mg/dL (7-18) H Creatinine 1.8 MG/DL (0.55-1.30) #H Estimat Glomerular Filtration Rate 33.8 mL/min (>60) Glucose Level 122 MG/DL (74-106) H Calcium Level 8.6 MG/DL (8.5-10.1) Total Bilirubin 0.2 MG/DL (0.2-1.0) Aspartate Amino Transf (AST/SGOT) 79 U/L (15-37) H Alanine Aminotransferase (ALT/SGPT) 66 U/L (12-78) Alkaline Phosphatase 94 U/L (46-116) C-Reactive Protein, Quantitative < 0.4 mg/dL (0.00-0.90) Total Protein 5.8 G/DL (6.4-8.2) L Albumin 2.5 G/DL (3.4-5.0) L Globulin 3.3 g/dL Albumin/Globulin Ratio 0.8 (1.0-2.7) L Plan Problems: (1) Decubitus skin ulcer Assessment & Plan: Pt presented on admission with multiple skin breakdown. Non-blanching erythema without induration or fluctuance Sacrum, R and L gluteal cheeks. Pt. complained of tenderness when minimally palpated. DTPI noted to L heel extending into plantar aspect (L)3.3cm x (W)8cm.Base of injury presents as an intact blood filled blister.Pt complained of tenderness when palpated. DTPI R heel(L)4cm x (W)6cm. Base of injury is fluctuant and maroon. Pt also complained of pain when minimally palpated. NO other areas of skin breakdown noted. Tx.Plan: Apply Moisture Barrier Paste to Sacrum. Cover with Optifoam Drsg. Change every 3 days and prn. Apply Cavilon Skin Barrier to both heels. Cover each heel with Optifoam drsg. Change every 7 days and prn. Reposition at least every 2hours or as tolerated. Off-load heels with pillow. APM/YONY Mattress. (2) Abdominal pain Assessment & Plan: cramping abdominal pain onset 1-2 days nausea no emesis labs noted KUB noted cont diet zofran prn constipated bowel regimen will follow with serial exams no surgical intervention planned at this time Srinivas Macias Jan 30, 2020 14:58
[2020-01-30] MEDS ORDERED: Fleet's Enema 133ml RECTAL SCH (14:59)
[2020-01-30] MEDS ORDERED: Milk of Magnesia 30ml Ud ORAL PRN (15:00)
[2020-01-30] MEDS ORDERED: Milk of Magnesia 30ml Ud ORAL SCH (15:00)
[2020-01-30] MEDS: Lactobacillus-GG tablet ORAL SCH (21:04)
[2020-01-31] VITALS (8 sets, daily range): BP systolic 117–145; BP diastolic 47–70
[2020-01-31] MEDS: Doxazosin 1mg Tab ORAL SCH (09:00)
[2020-01-31] MEDS: Docusate 100mg cap ORAL SCH (09:12)
[2020-01-31] MEDS: Bactrim SS Tab ORAL SCH ×2 (09:12→20:23)
[2020-01-31] MEDS: Eliquis 5mg tablet ORAL SCH ×2 (09:13→18:24)
--- NOTE | 2020-01-31 17:34 | Pulmonology Progress Note ---
Assessment/Plan Assessment/Plan Pulmonary Progress Note Assessment/Plan: ASSESSMENT agitation toxic met encephalopathy dementia CVA afib per history UTI PLAN psych care and intervention snf meds ativan prn restraints as needed monitor for change and check urine culture PT started on antibiotics await improvement in agitation and then dc back to snf impression, plan, and exam edited and reviewed in detail care discussed with RN Subjective Allergies: Coded Allergies: No Known Allergies (Unverified , 03/28/19) Subjective less agitated positive urine infection not yet ready for SNF Objective Vital Signs Noted Laboratory Tests 01/29/20 05:20: White Blood Count 4.4L, Red Blood Count 3.26L, Hemoglobin 10.3L, Hematocrit 29.6L, Mean Corpuscular Volume 91, Mean Corpuscular Hemoglobin 31.7H, Mean Corpuscular Hemoglobin Concent 34.8, Red Cell Distribution Width 12.2, Platelet Count 175, Mean Platelet Volume 6.2L, Neutrophils (%) (Auto) , Lymphocytes (%) ( Auto) , Monocytes (%) (Auto) , Eosinophils (%) (Auto) , Basophils (%) (Auto) , Differential Total Cells Counted 100, Neutrophils % (Manual) 22L, Lymphocytes % (Manual) 63H, Monocytes % (Manual) 12H, Eosinophils % (Manual) 3, Basophils % ( Manual) 0, Band Neutrophils 0, Platelet Estimate Adequate, Platelet Morphology Normal, Sodium Level 144, Potassium Level 3.9, Chloride Level 111H, Carbon Dioxide Level 21, Anion Gap 12, Blood Urea Nitrogen 29H, Creatinine 0.9, Estimat Glomerular Filtration Rate > 60, Glucose Level 113H, Calcium Level 8.8, Total Bilirubin 0.3, Aspartate Amino Transf (AST/SGOT) 58H, Alanine Aminotransferase (ALT/SGPT) 71, Alkaline Phosphatase 94, Total Protein 6.1L, Albumin 2.5L, Globulin 3.6, Albumin/Globulin Ratio 0.7L Height (Feet): 5 Height (Inches): 6.00 Weight (Pounds): 138 Objective WDWN NAD clear breath sounds bilaterally without rhonchi or wheeze [id number] without MRG NABS nontender no HSM no CCE nonfocal awake Patient seen 01/30/2020 Subjective ROS Limited/Unobtainable: No Allergies: Coded Allergies: No Known Allergies (Unverified , 03/28/19) Objective Last 24 Hour Vital Signs Date Time Temp Pulse Resp B/P (MAP) Pulse Ox O2 Delivery O2 Flow Rate FiO2 01/31/20 16:00 97.1 63 19 123/48 (73) 98 01/31/20 13:25 117/48 01/31/20 13:20 98.1 63 17 117/48 (71) 98 01/31/20 12:00 97.1 61 18 129/53 (78) 98 01/31/20 09:05 79 119/52 (74) 01/31/20 09:00 79 119/52 01/31/20 09:00 79 119/52 01/31/20 09:00 Room Air 01/31/20 08:00 97.1 53 18 130/47 (74) 96 01/31/20 06:00 145/53 01/31/20 04:22 98.9 53 20 145/53 (83) 98 01/31/20 00:37 98.0 62 20 140/57 (84) 98 01/30/20 21:05 63 156/65 01/30/20 21:04 156/65 01/30/20 21:00 Room Air 01/30/20 20:00 98.1 63 20 153/61 (91) 98 Intake and Output 01/30/20 01/31/20 19:00 07:00 Intake Total 240 ml 1100 ml Output Total 600 ml Balance 240 ml 500 ml Intake Oral 240 ml 300 ml Other 800 ml Output Urine Total 600 ml # Bowel Movements 1 Current Medications Medications (Trade) Dose Ordered Sig/Seng Route PRN Reason Start Time Stop Time Status Last Admin Dose Admin Acetaminophen (Tylenol) 650 mg Q4H PRN ORAL Mild Pain/Temp > 100.5 01/23/20 21:15 02/22/20 21:14 01/30/20 18:50 Al Hydroxide/Mg Hydroxide (Mylanta) 30 ml Q4H PRN ORAL Abdominal cramps 01/23/20 21:15 02/22/20 21:14 Amlodipine Besylate (Norvasc) 10 mg DAILY ORAL 01/24/20 09:00 02/23/20 08:59 01/29/20 09:26 Apixaban (Eliquis) 5 mg BID ORAL 01/24/20 09:00 04/23/20 08:59 01/31/20 09:13 Carvedilol (Coreg) 3.125 mg EVERY 12 HOURS ORAL 01/23/20 21:00 02/22/20 20:59 01/30/20 21:05 Chlorthalidone (Chlorthalidone) 25 mg DAILY ORAL 01/24/20 09:00 02/23/20 08:59 01/29/20 09:25 Clonidine HCl (Catapres Tab) 0.1 mg EVERY 8 HOURS ORAL 01/23/20 22:00 04/22/20 21:59 01/30/20 21:04 Docusate Sodium (Colace) 100 mg DAILY ORAL 01/24/20 09:00 02/23/20 08:59 01/31/20 09:12 Doxazosin Mesylate (Cardura) 4 mg DAILY ORAL 01/24/20 09:00 02/23/20 08:59 01/29/20 09:25 Lactobacillus Acidophilus (Culturelle) 1 tab BEDTIME ORAL 01/23/20 21:00 04/22/20 20:59 01/30/20 21:04 Magnesium Hydroxide (Mom) 30 ml DAILYPRN PRN ORAL Constipation 01/30/20 15:00 02/29/20 14:59 Mirtazapine (Remeron) 15 mg BEDTIME ORAL 01/24/20 21:00 04/23/20 20:59 01/30/20 21:04 Nicotine (Nicoderm) 1 patch Q24H TDERMAL 01/24/20 12:00 04/23/20 11:59 01/31/20 13:31 Pantoprazole (Protonix) 40 mg DAILY ORAL 01/24/20 09:00 02/23/20 08:59 01/31/20 09:13 Risperidone (RisperDAL) 3 mg EVERY 12 HOURS ORAL 01/24/20 09:00 03/09/20 08:59 01/31/20 09:12 Trimethoprim/ Sulfamethoxazole (Bactrim Single Strength) 1 tab Q12HR ORAL 01/30/20 09:00 02/06/20 08:59 01/31/20 09:12 Tank Gallo MD Jan 31, 2020 17:34
--- NOTE | 2020-01-31 17:36 | Pulmonology Progress Note ---
Assessment/Plan Assessment/Plan Pulmonary Progress Note seen 01/31/2020 Assessment/Plan: ASSESSMENT agitation toxic met encephalopathy dementia CVA afib per history UTI Stable overnight PLAN psych care and intervention snf meds ativan prn restraints as needed monitor for change and check urine culture PT on antibiotics await improvement in agitation and then dc back to snf impression, plan, and exam edited and reviewed in detail care discussed with RN Subjective Allergies: Coded Allergies: No Known Allergies (Unverified , 03/28/19) Subjective less agitated positive urine infection not yet ready for SNF Objective Vital Signs Noted Laboratory Tests Noted Height (Feet): 5 Height (Inches): 6.00 Weight (Pounds): 138 Objective WDWN NAD clear breath sounds bilaterally without rhonchi or wheeze [id number] without MRG NABS nontender no HSM no CCE nonfocal awake Subjective ROS Limited/Unobtainable: No Allergies: Coded Allergies: No Known Allergies (Unverified , 03/28/19) Objective Last 24 Hour Vital Signs Date Time Temp Pulse Resp B/P (MAP) Pulse Ox O2 Delivery O2 Flow Rate FiO2 01/31/20 16:00 97.1 63 19 123/48 (73) 98 01/31/20 13:25 117/48 01/31/20 13:20 98.1 63 17 117/48 (71) 98 01/31/20 12:00 97.1 61 18 129/53 (78) 98 01/31/20 09:05 79 119/52 (74) 01/31/20 09:00 79 119/52 01/31/20 09:00 79 119/52 01/31/20 09:00 Room Air 01/31/20 08:00 97.1 53 18 130/47 (74) 96 01/31/20 06:00 145/53 01/31/20 04:22 98.9 53 20 145/53 (83) 98 01/31/20 00:37 98.0 62 20 140/57 (84) 98 01/30/20 21:05 63 156/65 01/30/20 21:04 156/65 01/30/20 21:00 Room Air 01/30/20 20:00 98.1 63 20 153/61 (91) 98 Intake and Output 01/30/20 01/31/20 19:00 07:00 Intake Total 240 ml 1100 ml Output Total 600 ml Balance 240 ml 500 ml Intake Oral 240 ml 300 ml Other 800 ml Output Urine Total 600 ml # Bowel Movements 1 Current Medications Medications (Trade) Dose Ordered Sig/Seng Route PRN Reason Start Time Stop Time Status Last Admin Dose Admin Acetaminophen (Tylenol) 650 mg Q4H PRN ORAL Mild Pain/Temp > 100.5 01/23/20 21:15 02/22/20 21:14 01/30/20 18:50 Al Hydroxide/Mg Hydroxide (Mylanta) 30 ml Q4H PRN ORAL Abdominal cramps 01/23/20 21:15 02/22/20 21:14 Amlodipine Besylate (Norvasc) 10 mg DAILY ORAL 01/24/20 09:00 02/23/20 08:59 01/29/20 09:26 Apixaban (Eliquis) 5 mg BID ORAL 01/24/20 09:00 04/23/20 08:59 01/31/20 09:13 Carvedilol (Coreg) 3.125 mg EVERY 12 HOURS ORAL 01/23/20 21:00 02/22/20 20:59 01/30/20 21:05 Chlorthalidone (Chlorthalidone) 25 mg DAILY ORAL 01/24/20 09:00 02/23/20 08:59 01/29/20 09:25 Clonidine HCl (Catapres Tab) 0.1 mg EVERY 8 HOURS ORAL 01/23/20 22:00 04/22/20 21:59 01/30/20 21:04 Docusate Sodium (Colace) 100 mg DAILY ORAL 01/24/20 09:00 02/23/20 08:59 01/31/20 09:12 Doxazosin Mesylate (Cardura) 4 mg DAILY ORAL 01/24/20 09:00 02/23/20 08:59 01/29/20 09:25 Lactobacillus Acidophilus (Culturelle) 1 tab BEDTIME ORAL 01/23/20 21:00 04/22/20 20:59 01/30/20 21:04 Magnesium Hydroxide (Mom) 30 ml DAILYPRN PRN ORAL Constipation 01/30/20 15:00 02/29/20 14:59 Mirtazapine (Remeron) 15 mg BEDTIME ORAL 01/24/20 21:00 04/23/20 20:59 01/30/20 21:04 Nicotine (Nicoderm) 1 patch Q24H TDERMAL 01/24/20 12:00 04/23/20 11:59 01/31/20 13:31 Pantoprazole (Protonix) 40 mg DAILY ORAL 01/24/20 09:00 02/23/20 08:59 01/31/20 09:13 Risperidone (RisperDAL) 3 mg EVERY 12 HOURS ORAL 01/24/20 09:00 03/09/20 08:59 01/31/20 09:12 Trimethoprim/ Sulfamethoxazole (Bactrim Single Strength) 1 tab Q12HR ORAL 01/30/20 09:00 02/06/20 08:59 01/31/20 09:12 Tank Gallo MD Jan 31, 2020 17:36
--- NOTE | 2020-01-31 18:21 | Surgery Progress Note ---
Surgery Progress Note Subjective Symptoms: improved, tolerating diet, passing flatus Objective Last 24 Hour Vital Signs Date Time Temp Pulse Resp B/P (MAP) Pulse Ox O2 Delivery O2 Flow Rate FiO2 01/31/20 16:00 97.1 63 19 123/48 (73) 98 01/31/20 13:25 117/48 01/31/20 13:20 98.1 63 17 117/48 (71) 98 01/31/20 12:00 97.1 61 18 129/53 (78) 98 01/31/20 09:05 79 119/52 (74) 01/31/20 09:00 79 119/52 01/31/20 09:00 79 119/52 01/31/20 09:00 Room Air 01/31/20 08:00 97.1 53 18 130/47 (74) 96 01/31/20 06:00 145/53 01/31/20 04:22 98.9 53 20 145/53 (83) 98 01/31/20 00:37 98.0 62 20 140/57 (84) 98 01/30/20 21:05 63 156/65 01/30/20 21:04 156/65 01/30/20 21:00 Room Air 01/30/20 20:00 98.1 63 20 153/61 (91) 98 I&O Intake and Output 01/30/20 01/31/20 19:00 07:00 Intake Total 240 ml 1100 ml Output Total 600 ml Balance 240 ml 500 ml Intake Oral 240 ml 300 ml Other 800 ml Output Urine Total 600 ml # Bowel Movements 1 Cardiovascular: RSR Respiratory: clear Abdomen: soft, non-tender, present bowel sounds, non-distended Extremities: no tenderness, no cyanosis Plan Problems: (1) Decubitus skin ulcer Assessment & Plan: Pt presented on admission with multiple skin breakdown. Non-blanching erythema without induration or fluctuance Sacrum, R and L gluteal cheeks. Pt. complained of tenderness when minimally palpated. DTPI noted to L heel extending into plantar aspect (L)3.3cm x (W)8cm.Base of injury presents as an intact blood filled blister.Pt complained of tenderness when palpated. DTPI R heel(L)4cm x (W)6cm. Base of injury is fluctuant and maroon. Pt also complained of pain when minimally palpated. NO other areas of skin breakdown noted. Tx.Plan: Apply Moisture Barrier Paste to Sacrum. Cover with Optifoam Drsg. Change every 3 days and prn. Apply Cavilon Skin Barrier to both heels. Cover each heel with Optifoam drsg. Change every 7 days and prn. Reposition at least every 2hours or as tolerated. Off-load heels with pillow. APM/YONY Mattress. (2) Abdominal pain Assessment & Plan: cramping abdominal pain onset 1-2 days nausea no emesis labs noted KUB noted cont diet zofran prn constipated bowel regimen will follow with serial exams no surgical intervention planned at this time Srinivas Macias Jan 31, 2020 18:21
[2020-01-31] MEDS: Lactobacillus-GG tablet ORAL SCH (20:24)
[2020-02-01] VITALS: BP 144/50
--- NOTE | 2020-02-01 01:30 | Progress Note ---
DATE: 01/31/2020 SUBJECTIVE: Patient is doing well, manageable. No behavior issues noted today. Calm. She is awaiting placement. MENTAL STATUS EXAMINATION: Patient is alert, oriented times self, place. Mood is neutral. Affect is flat. Thought process is concrete. Thought content, no suicidal or homicidal ideation. ASSESSMENT: Stable. PLAN: 1. We will continue current psychotropic medications. 2. Provide the patient with reality orientation and supportive therapy. Jourdan Lackey M.D. DR: ANALI JOB#: [id number] CC:
[2020-02-01 04:00] VITALS: BP 125/68
[2020-02-01 07:36] LABS: HEMATOCRIT 28.1 % (37.0-47.0); MEAN CORPUSCULAR VOLUME 90 FL (80-99); PLATELET COUNT 164 K/UL (150-450); RED BLOOD COUNT 3.13 M/UL (4.20-5.40); RED CELL DISTRIBUTION WIDTH 11.9 % (11.6-14.8)
[2020-02-01 08:00] VITALS: BP 135/53
[2020-02-01] MEDS: Doxazosin 1mg Tab ORAL SCH (08:36)
[2020-02-01] MEDS: Docusate 100mg cap ORAL SCH (08:37)
[2020-02-01] MEDS: Eliquis 5mg tablet ORAL SCH (08:37)
[2020-02-01] MEDS: Bactrim SS Tab ORAL SCH (08:37)
[2020-02-01 08:53] LABS: ANION GAP 12 mmol/L (5-15); BLOOD UREA NITROGEN 38 mg/dL (7-18); CALCIUM 8.9 MG/DL (8.5-10.1); CARBON DIOXIDE 20 MMOL/L (21-32); CHLORIDE 107 MMOL/L (98-107); CREATININE 1.3 MG/DL (0.55-1.30); POTASSIUM 4.7 MMOL/L (3.5-5.1); SODIUM 139 MMOL/L (136-145)
--- NOTE | 2020-02-01 10:28 | General Progress Note ---
Assessment/Plan Assessment/Plan: ASSESSMENT agitation toxic met encephalopathy dementia CVA afib per history UTI PLAN psych care and intervention snf meds ativan prn restraints as needed monitor for change and check urine culture PT started on antibiotics await bed at SNF impression, plan, and exam edited and reviewed in detail care discussed with RN Subjective Allergies: Coded Allergies: No Known Allergies (Unverified , 03/28/19) Subjective awaiting placement + urine infection not yet ready for SNF Objective Last 24 Hour Vital Signs Date Time Temp Pulse Resp B/P (MAP) Pulse Ox O2 Delivery O2 Flow Rate FiO2 02/01/20 09:00 Room Air 02/01/20 08:41 54 135/53 02/01/20 08:36 54 135/53 02/01/20 08:00 97.1 54 18 135/53 (80) 97 02/01/20 06:06 147/78 02/01/20 04:00 98.0 60 19 125/68 (87) 97 02/01/20 00:00 98.3 59 19 144/50 (81) 98 01/31/20 22:13 147/78 01/31/20 21:03 Room Air 01/31/20 20:24 78 125/74 01/31/20 20:00 99.5 67 18 125/70 (88) 100 01/31/20 16:00 97.1 63 19 123/48 (73) 98 01/31/20 13:25 117/48 01/31/20 13:20 98.1 63 17 117/48 (71) 98 01/31/20 12:00 97.1 61 18 129/53 (78) 98 Intake and Output 01/31/20 02/01/20 19:00 07:00 Intake Total 1520 ml Balance 1520 ml Intake Oral 720 ml Other 800 ml Laboratory Tests 02/01/20 05:35: White Blood Count 4.0L, Red Blood Count 3.13L, Hemoglobin 10.0L, Hematocrit 28.1L, Mean Corpuscular Volume 90, Mean Corpuscular Hemoglobin 32.0H, Mean Corpuscular Hemoglobin Concent 35.6, Red Cell Distribution Width 11.9, Platelet Count 164, Mean Platelet Volume 6.3L, Neutrophils (%) (Auto) , Lymphocytes (%) ( Auto) , Monocytes (%) (Auto) , Eosinophils (%) (Auto) , Basophils (%) (Auto) , Neutrophils % (Manual) [Pending], Lymphocytes % (Manual) [Pending], Platelet Estimate [Pending], Platelet Morphology [Pending], Sodium Level 139, Potassium Level 4.7, Chloride Level 107, Carbon Dioxide Level 20L, Anion Gap 12, Blood Urea Nitrogen 38H, Creatinine 1.3, Estimat Glomerular Filtration Rate 49.2, Glucose Level 106, Calcium Level 8.9 Height (Feet): 5 Height (Inches): 6.00 Weight (Pounds): 138 Objective WDWN NAD clear breath sounds bilaterally without rhonchi or wheeze [id number] without MRG NABS nontender no HSM no CCE nonfocal awake Vitor Dunn MD Feb 01, 2020 10:28
[2020-02-01 12:00] VITALS: BP 130/57
--- NOTE | 2020-02-01 13:42 | Diagnostic Imaging Report ---
Indication: Abdominal pain Technique: Supine view of the abdomen Comparison: 01/30/2020 Findings: Bowel gas pattern is unremarkable. Less gas is seen within the colon than previously No unusual masses or calcifications. There are degenerative changes of the lumbar spine Impression: No acute process
[2020-02-01] MEDS ORDERED: ACETAMINOPHEN325 M1 ORAL (14:05)
[2020-02-01] MEDS ORDERED: MYLANTA30 M1 ORAL (14:07)
[2020-02-01] MEDS ORDERED: ELIQUIS5 MG PO (14:08)
[2020-02-01] MEDS ORDERED: NORVASC10 MG ORAL (14:08)
[2020-02-01] MEDS ORDERED: CARVEDILOL3.125 MG ORAL (14:09)
[2020-02-01] MEDS ORDERED: CHLORTHALIDONE25 MG ORAL (14:10)
[2020-02-01] MEDS ORDERED: ACIDOPHILUS1 EAC4 PO (14:11)
[2020-02-01] MEDS ORDERED: MILK OF MA400 MG/51 ORAL (14:11)
[2020-02-01] MEDS ORDERED: MIRTAZAPINE15 M3 ORAL (14:12)
[2020-02-01] MEDS ORDERED: PANTOPRAZOLE SO40 MG ORAL (14:14)
[2020-02-01] MEDS ORDERED: NICOTINE PATCH1 EAC5 TD (14:14)
[2020-02-01] MEDS ORDERED: BACTRIM 400-801 EACH ORAL (14:15)
[2020-02-01 14:24] VITALS: BP 130/57
--- NOTE | 2020-02-01 17:55 | Surgery Progress Note ---
Surgery Progress Note Subjective Additional Comments late entry doing well improved no n/v/f/c d/c plan for today tolerating diet no complaints Objective Last 24 Hour Vital Signs Date Time Temp Pulse Resp B/P (MAP) Pulse Ox O2 Delivery O2 Flow Rate FiO2 02/01/20 14:24 130/57 02/01/20 12:00 97.9 56 20 130/57 (81) 97 02/01/20 09:00 Room Air 02/01/20 08:41 54 135/53 02/01/20 08:36 54 135/53 02/01/20 08:00 97.1 54 18 135/53 (80) 97 02/01/20 06:06 147/78 02/01/20 04:00 98.0 60 19 125/68 (87) 97 02/01/20 00:00 98.3 59 19 144/50 (81) 98 01/31/20 22:13 147/78 01/31/20 21:03 Room Air 01/31/20 20:24 78 125/74 01/31/20 20:00 99.5 67 18 125/70 (88) 100 I&O Intake and Output 01/31/20 02/01/20 19:00 07:00 Intake Total 1520 ml Balance 1520 ml Intake Oral 720 ml Other 800 ml Cardiovascular: RSR Respiratory: clear Abdomen: soft, non-tender, present bowel sounds Extremities: no edema, no tenderness, no cyanosis Laboratory Tests Test 02/01/20 05:35 White Blood Count 4.0 K/UL (4.8-10.8) L Red Blood Count 3.13 M/UL (4.20-5.40) L Hemoglobin 10.0 G/DL (12.0-16.0) L Hematocrit 28.1 % (37.0-47.0) L Mean Corpuscular Volume 90 FL (80-99) Mean Corpuscular Hemoglobin 32.0 PG (27.0-31.0) H Mean Corpuscular Hemoglobin Concent 35.6 G/DL (32.0-36.0) Red Cell Distribution Width 11.9 % (11.6-14.8) Platelet Count 164 K/UL (150-450) Mean Platelet Volume 6.3 FL (6.5-10.1) L Neutrophils (%) (Auto) % (45.0-75.0) Lymphocytes (%) (Auto) % (20.0-45.0) Monocytes (%) (Auto) % (1.0-10.0) Eosinophils (%) (Auto) % (0.0-3.0) Basophils (%) (Auto) % (0.0-2.0) Differential Total Cells Counted 100 Neutrophils % (Manual) 19 % (45-75) L Lymphocytes % (Manual) 73 % (20-45) H Monocytes % (Manual) 8 % (1-10) Eosinophils % (Manual) 0 % (0-3) Basophils % (Manual) 0 % (0-2) Band Neutrophils 0 % (0-8) Platelet Estimate Adequate Platelet Morphology Normal Hypochromasia 1+ Anisocytosis 1+ Spherocytes 1+ Sodium Level 139 MMOL/L (136-145) Potassium Level 4.7 MMOL/L (3.5-5.1) Chloride Level 107 MMOL/L (98-107) Carbon Dioxide Level 20 MMOL/L (21-32) L Anion Gap 12 mmol/L (5-15) Blood Urea Nitrogen 38 mg/dL (7-18) H Creatinine 1.3 MG/DL (0.55-1.30) Estimat Glomerular Filtration Rate 49.2 mL/min (>60) Glucose Level 106 MG/DL (74-106) Calcium Level 8.9 MG/DL (8.5-10.1) Plan Problems: (1) Decubitus skin ulcer Assessment & Plan: Pt presented on admission with multiple skin breakdown. Non-blanching erythema without induration or fluctuance Sacrum, R and L gluteal cheeks. Pt. complained of tenderness when minimally palpated. DTPI noted to L heel extending into plantar aspect (L)3.3cm x (W)8cm.Base of injury presents as an intact blood filled blister.Pt complained of tenderness when palpated. DTPI R heel(L)4cm x (W)6cm. Base of injury is fluctuant and maroon. Pt also complained of pain when minimally palpated. NO other areas of skin breakdown noted. Tx.Plan: Apply Moisture Barrier Paste to Sacrum. Cover with Optifoam Drsg. Change every 3 days and prn. Apply Cavilon Skin Barrier to both heels. Cover each heel with Optifoam drsg. Change every 7 days and prn. Reposition at least every 2hours or as tolerated. Off-load heels with pillow. APM/YONY Mattress. (2) Abdominal pain Assessment & Plan: cramping abdominal pain onset 1-2 days nausea no emesis labs noted KUB noted cont diet zofran prn constipated bowel regimen will follow with serial exams no surgical intervention planned at this time Additional Comments okay to d.c diet as tolerated above care plan for d/c Srinivas Macias Feb 01, 2020 17:55
--- NOTE | 2020-02-01 22:38 | Psych Consult Progress Note ---
Psychiatry Progress Note Psychiatry Progress Note Neurological/Psychiatric: Reports: anxiety, depressed, emotional problems Allergies: Coded Allergies: No Known Allergies (Unverified , 03/28/19) Objective Data Height (Feet): 5 Height (Inches): 6.00 Weight (Pounds): 138 Additional Comments: alert, oriented times self, place. Mood is neutral. Affect is flat. Thought process is concrete. Thought content, no suicidal or homicidal ideation. Assessment/Plan Assessment/Plan: PLAN: 1. Risperidone 3 mg twice a day. 2. Remeron 15 at bedtime. 3. dc restraints. Jourdan Lackey MD Feb 01, 2020 22:38
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
--- NOTE | 2020-02-06 11:16 | Coder Physician Query ---
PLEASE COMPLETE DOCUMENT BEFORE SIGNING Dear Dr. FORMAN Date: 02/06/2020 Cot Assembler/CDS Name: LEVI,BLAYNE Exercise your independent professional judgment when responding to query. Question asked do not imply a particular answer is desired/expected. REASON FOR ADMISSION: 69 years old female with past medical history of CVA, atrial fibrillation, psychosis, dementia, presented from the halfway facility with worsening agitation and confusion. Patient started on IV fluids and empiric antibiotics. Urine culture revealed E. coli. COVID 19 came back negative. Hyperkalemia was addressed and corrected. FINAL DIAGNOSES: Toxic metabolic encephalopathy UNKNOWN Urinary tract infection Dehydration Suspected COVID 19 infection - was ruled out If known, what is the underlying condition that caused the encephalopathy? Physician Response: MAGALI FORMAN M.D. DATE & TIME [facility]
== END 2020-02-01 14:55 | DRG 689 ==
LOC: EDUNIT# 15:11 → EDBD 15:11 → EMR 15:54 → EDBEDREQ 18:29 → 4E 18:52
DX: N39.0 Urinary tract infection, site not specified (principal); G92 Toxic encephalopathy; E86.0 Dehydration; K59.00 Constipation, unspecified; F20.9 Schizophrenia, unspecified; F03.90 Unspecified dementia, unspecified severity, without behavioral disturbance, psychotic disturbance, mood disturbance, and anxiety; Z86.73 Personal history of transient ischemic attack (TIA), and cerebral infarction without residual deficits; E87.5 Hyperkalemia; L89.626 Pressure-induced deep tissue damage of left heel; L89.616 Pressure-induced deep tissue damage of right heel; I48.91 Unspecified atrial fibrillation; B96.20 Unspecified Escherichia coli [E. coli] as the cause of diseases classified elsewhere; F32.9 Major depressive disorder, single episode, unspecified; J44.9 Chronic obstructive pulmonary disease, unspecified; I10 Essential (primary) hypertension
CPT/HCPCS: 36415; 71045; 74018; 80048; 80053; 81001; 81003; 82550; 84484; 85007; 85025; 85651; 86140; 87081; 87086; 87181; 87635; 93005; 96372; 96374; 99285; J2250